=== PATIENT | male | born 1965 | race Caucasian/White ===

== ENCOUNTER 2020-03-11 15:13 | Outpatient (CLI) | payer BC, SELFPAY ==
--- NOTE | ~2020-03-11 | XR_ITS ---
EXAMINATION: XR_CERV2-3V_CR EXAM DATE: 03/11/2020 16:05 INDICATION: Worsening diffuse neck and back pain into scapula, tingling into bilateral upper arms x 3 years. TECHNIQUE: Frontal and lateral projections of the cervical spine. Open-mouth odontoid projection. T here is no prior study for comparison. FINDINGS: There is no evidence of acute cervical fracture. The odontoid process is intact. Pre-dens space is normal. Prevertebral soft tissue is normal. There are no soft tissue abnormalities identi fied. The vertebral bodies are aligned. There is mild disc disease at C6-7. There is mild cervica l facet and uncovertebral joint arthropathy. No evidence of significant neural foraminal stenosis. IMPRESSION: 1. Mild cervical spondylosis. Reviewed, dictated and finalized at location A.
--- NOTE | ~2020-03-11 | XR_ITS ---
EXAMINATION: XR thoracic spine 3V EXAM DATE: 03/11/2020 16:06 INDICATION: worsening diffuse neck and back pain into scapula, tingling into bilateral upper arms x 3 years. TECHNIQUE: Frontal and lateral projections of the thoracic spine. There is no prior study for tobin burks. FINDINGS: There is mild mid and lower thoracic disc disease with small Schmorl's nodes and mild loss of disc heights noted. The vertebral body heights are maintained. The vertebral bodies are aligned i n the AP dimension. Paraspinal soft tissue is unremarkable. There are no bony erosions identified. IMPRESSION: Mild mid and lower thoracic disc disease. Reviewed, dictated and finalized at location A.
--- NOTE | ~2020-03-11 | XR_ITS ---
EXAMINATION: XR chest 2V 03/11/2020 16:04 INDICATION: Worsening back pain PROCEDURE: 2 view chest COMPARISON: 03/14/2018 FINDINGS: The lungs are clear. The lungs are hyperinflated which is consistent with, but not diagnost ic of chronic obstructive pulmonary disease. The cardiomediastinal silhouette is within normal limits . There are no pleural effusions. There is no pneumothorax suspected. IMPRESSION: 1: NO ACUTE CARDIOPULMONARY DISEASE. Reviewed, dictated and finalized at location A.
== END 2020-03-11 15:14 | disposition home or self-care (01) ==
LOC: CHSIMG 15:17
PROVIDERS: PCP Internal Medicine; Visit Provider Internal Medicine
DX: M54.2 Cervicalgia (principal); M54.6 Pain in thoracic spine
CPT/HCPCS: 71046; 72040; 72072

== ENCOUNTER 2020-05-09 14:36 | Outpatient (CLI) | payer BC, SELFPAY ==
--- NOTE | 2020-05-09 14:45 | ECG_ITS ---
Measurements Intervals [place] Rate: 103 P: 76 ND: 170 QRS: 89 QRSD: 90 T: 67 QT: 330 QTc: 433 Interpretive Statements SINUS TACHYCARDIA POSSIBLE RIGHT ATRIAL ENLARGEMENT POSSIBLE LEFT ATRIAL ENLARGEMENT NONSPECIFIC T-WAVE ABNORMALITY- INFERIOR LEADS ABNORMAL ECG Electronically Signed On 05-09-2020 16:09:09 CDT by Gabino Cunningham D.O.
== END 2020-05-09 14:37 | disposition home or self-care (01) ==
LOC: CHSCARD 14:39
PROVIDERS: PCP Internal Medicine; Visit Provider Internal Medicine
DX: I10 Essential (primary) hypertension (principal); Z01.818 Encounter for other preprocedural examination
CPT/HCPCS: 93005

== ENCOUNTER 2020-05-30 19:14 | Inpatient (IN) | payer BC, SELFPAY ==
--- NOTE | ~2020-05-30 | XR_ITS ---
EXAMINATION: XR chest 2V DATE: 06/01/2020 10:51 INDICATION: Acute kidney failure. TECHNIQUE: Frontal and lateral views of the chest were obtained. COMPARISON: Chest 2 views 03/11/2020 FINDINGS: The chest demonstrates clear lungs without pneumonia, pleural effusion, or pneumothorax. Th e heart size is normal. IMPRESSION: 1. No acute cardiopulmonary disease. Reviewed, dictated and finalized at location A.
--- NOTE | 2020-05-30 19:25 | ADMGEN ---
This patient, Khurram Trujillo, was admitted to 2nd Floor Room 226-2. Patient/family oriented to hospital policies and general routines including ID bracelet, bed and alarms, visiting hours, pain management, procedures, bathroom and other care routines, personal items, smoking policy, room service/diet, and visiting hours. Valuables list has been completed. Information on how to activate the Rapid Response Team has been discussed. Patient/Family are encouraged to report perceived risks to care and to ask questions if they do not understand what they are told or what they should do.
[2020-05-30 19:31] VITALS: BP 141/87; PULSE 114; RESP 18; TEMP 36.8; O2SAT 98
[2020-05-30 19:39] VITALS: BMI 22.6
[2020-05-30 20:17] LABS: Glucose Point of Care 230 (65-105)
--- NOTE | 2020-05-30 20:53 | PM.IMHP ---
H&P: HPI History of Present Illness Date/Time: 05/30/20 20:53 Chief complaint: Rehab Narrative: Khurram Trujillo is a 55 year old male with Type 1 DM who was transferred from [facility] rehab. unit for PT, OT and speech therapy. He has a 3 year history of cervical myelopathy involving the C6-C7 disc space. There was marked worsening of his pain and paresthesias approximately 90 days ago. This resulted in pain and numbness in his arms and upper forearm area. His symptoms were relatively controlled with [place] 5/325 - 2 or 3 times daily. On 05/19/2020 he had a anterior cervical diskectomy and fusion at C6-C7. He woke from surgery with right leg weakness and paresthesias, paresthesias in his lower left leg, paresthesias of the trunk, bilateral weakness and paresthesias of the medial hands and 3rd 4th and 5th fingers. On arrival to the rehab unit on May 28 Khurram had a 3 post-void residual test done. He had 500 mL residual with 3rd specimen but was able to void within 40 minutes. He was told this was acceptable and there was no further postvoid studies. Over the past 3 or 4 days Khurram has seen marked improvement. Paresthesias and weakness of the upper extremities have decreased by about 80%, paresthesias in his lower legs have also decreased substantially. He is now able to walk using a walker. The paresthesias in his trunk have resolved by about 80%. After waking up from his surgery with the above deficits Khurram's states he was quite devastated but now is very hopeful. He currently denies anxiety or feeling depressed. Khurram states he does not have a history of hypertension. Documented blood pressure reading from May 27 through May 29 showed systolics in the range of 164-144 with diastolic readings between 88 and 104. Blood pressure this morning 125/7 He has type 1 diabetes which has been treated with NovoLog 70 30 25 in the morning and 20 in the evening. These have resulted in blood sugars in the high 200s in the morning in the low 200s in the afternoon. Chirag ix taking lisinopril for renal preservation. Review of Systems Constitutional: Constitutional: Denies chills, Denies fever(s) and Denies headache(s) Eyes: Eyes: Denies blurry vision Comments: Yearly eye exam. Pt states these remain normal . ENT: Denies vertigo, Denies neck pain and Denies sore throat Cardiovascular: Cardiovascular: Denies chest pain and Denies palpitations Respiratory: Respiratory: Denies cough and Denies dyspnea Gastrointestinal: Gastrointestinal: Reports constipation (constipation episode relieved with stool softener), Denies dyspepsia, Denies diarrhea and Denies nausea Genitourinary: Genitourinary: Denies hematuria and Denies dysuria Musculoskeletal: Musculoskeletal: Reports no additional musculoskeletal complaints Integumentary/Breasts: Skin/Breast: Denies rash and Denies wounds Neurologic: Reports system reviewed and no additional complaints, except as documented Psychiatric: Psychiatric: Reports no additional psychiatric complaints Endocrine: Endocrine: Denies polydipsia Hematologic/Lymphatic: Hematologic/Lymphatic: Denies easy bleeding and Denies easy bruising PMFSH Past Medical History Medical History (Updated 05/30/20 @ 21:30 by Luisito Mart MD) Anxiety Diabetes mellitus type 1 Erectile dysfunction Kidney stones Family History Family History (Updated 05/30/20 @ 21:15 by Luisito Mart MD) Mother Lymphoma Sibling Lymphoma Social History Social History (Updated 05/30/20 @ 21:16 by Luisito Mart MD) Smoking packs per day: 1 Smoking cigarettes per day: 20.0 Years smoked: 34 Smoking pack-years: 34.00 Smoking status: Former smoker Tobacco type: cigarettes Second hand tobacco smoke exposure: Yes Smoking end date: 10/18/19 Alcohol intake: never Substance use: current Substance use type: marijuana Last use: 05/18/20 Living arrangements
[2020-05-31] VITALS: BP 138/84; PULSE 84; RESP 20; TEMP 37; O2SAT 96
--- NOTE | 2020-05-31 00:01 | PC.NURSE ---
Patient stating that he feels like is blood sugar is low. Blood sugar was checked and found to be 49. Patient was given apple juice and a turkey sandwich.
[2020-05-31 01:05] LABS: Glucose Point of Care 49 (65-105)
[2020-05-31 01:05] LABS: Glucose Point of Care 260 (65-105)
[2020-05-31] MEDS: GABAPENTIN 100 MG CAPSULE 200 MG PO ×3 (06:29→17:03)
[2020-05-31 07:36] LABS: Glucose Point of Care 283 (65-105)
[2020-05-31 07:42] VITALS: BP 129/90; PULSE 89; RESP 18; TEMP 36.5; O2SAT 99
[2020-05-31] MEDS: INSULIN HUMAN ISOPHAN/REGULAR 70/30 (*BKC) 100 UNITS/ML 25 UNITS SUB-Q (09:03)
[2020-05-31 09:59] LABS: Hematocrit 36.3 % (40.0-54.0); Hemoglobin 12.5 g/dL (14.0-18.0); Mean Corpuscular HGB Conc 34.4 g/dL (32.0-36.0); Mean Corpuscular Hemoglobin 30.7 pg (27.0-31.0); Mean Corpuscular Volume 89.2 fL (78.0-102.0); Mean Platelet Volume 9.7 fl (8.7-11.0); Platelet Count Result 427 K/mm3 (150-420); Red Blood Count 4.07 M/mm3 (4.70-6.10); Red Cell Distribution Width 11.3 % (11.6-14.4); White Blood Count 8.7 K/mm3 (4.8-10.8)
[2020-05-31 10:12] LABS: Alanine Aminotransferase 39 U/L (16-63); Albumin Level 3.4 g/dL (3.4-5.0); Alkaline Phosphatase 127 U/L (46-116); Anion Gap 6 mmol/L (8-16); Aspartate Amino Transferase 30 U/L (15-37); Bilirubin,Total 0.5 mg/dL (0.00-1.00); Blood Urea Nitrogen 23 mg/dL (7-18); Carbon Dioxide 29 mmol/L (21-32); Chloride 98 mmol/L (98-108); Estimated CRCL calculation 60 ml/min; Estimated Glomerular Filt Rate 58; Osmolality Calculated 298 mOsm/kg (285-295); Potassium 4.7 mmol/L (3.5-5.1); Sodium 133 mmol/L (136-145)
[2020-05-31 10:28] LABS: BNP 9.4 pg/mL (0-100); Glucose 446 mg/dL (70-99)
--- NOTE | 2020-05-31 12:00 | PC.NURSE ---
awake and states had a good nap, alert and oriented and food tray to patient, bedside glucose 259
[2020-05-31 12:08] LABS: Glucose Point of Care 259 (65-105)
--- NOTE | 2020-05-31 12:09 | PM.IMHP ---
H&P: HPI History of Present Illness Date/Time: 05/31/20 12:09 <MARYANNE Zafar - Last Filed: 05/31/20 13:22> Chief complaint: Rehab <MARYANNE Zafar - Last Filed: 05/31/20 13:22> Narrative: Khurram Trujillo is a 55 year old male that was admitted to our swing bed rehab program status post ACDF of C6-7 on 05/19/2020 secondary to cervical myopathy. patient has a past medical history of diabetes, hypertension, hypercholesterolemia, anxiety, kidney stones, TBI, CVA, history migraines, history of nephrolithiasis and appendectomy Patient admitted in swing bed for rehabilitation due to decreased balance decreased mobility in severe limited function endurant and/or mobility. <MARYANNE Zafar - Last Filed: 05/31/20 13:22> Review of Systems Review of Systems: All systems reviewed & are unremarkable except as noted in HPI and below ( h&P10 system review) <MARYANNE Zafar - Last Filed: 05/31/20 13:22> [facility] Past Medical History Medical History: Medical History (Updated 05/31/20 @ 13:22 by MARYANNE Zafar) Anxiety Diabetes mellitus type 1 Erectile dysfunction Kidney stones <MARYANNE Zafar - Last Filed: 05/31/20 13:22> Family History Family History: Family History (Updated 05/30/20 @ 21:15 by Luisito Mart MD) Mother Lymphoma Sibling Lymphoma <MARYANNE Zafar - Last Filed: 05/31/20 13:22> Social History Social History: Social History (Updated 05/30/20 @ 21:16 by Luisito Mart MD) Smoking packs per day: 1 Smoking cigarettes per day: 20.0 Years smoked: 34 Smoking pack-years: 34.00 Smoking status: Former smoker Tobacco type: cigarettes Second hand tobacco smoke exposure: Yes Smoking end date: 10/18/19 Alcohol intake: never Substance use: current Substance use type: marijuana Last use: 05/18/20 Living arrangements: alone Occupation/Education: occupation Additional occupation/education comments: 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 Gender identity (if verbalized by the patient): Male Spiritual care concerns: No <MARYANNE Zafar - Last Filed: 05/31/20 13:22> Meds Home Medications and Allergies Home medications: Home Medications Medication Instructions Recorded Confirmed Type acetaminophen 650 mg PO Q4H PRN 05/30/20 05/30/20 History gabapentin 200 mg PO TID 05/30/20 05/30/20 History hydrocodone-acetaminophen 1 tablet PO Q6H PRN 05/30/20 05/30/20 History insulin aspart U-100 [Novolog 20 unit SUBCUT QACDINNER 05/30/20 05/30/20 History U-100 Insulin aspart] insulin aspart U-100 [Novolog 25 unit SUBCUT QACBREAK 05/30/20 05/30/20 History U-100 Insulin aspart] lisinopril 10 mg PO HS 05/30/20 05/30/20 History polyethylene glycol 3350 17 g PO DAILY PRN 05/30/20 05/30/20 History sennosides-docusate sodium 1 tab-cap PO DAILY 05/30/20 05/30/20 History <MARYANNE Zafar - Last Filed: 05/31/20 13:22> Allergies/Adverse reactions: Allergies Allergy/AdvReac Type Severity Reaction Status Date / Time No Known Allergies Allergy Verified 05/31/20 01:59 <MARYANNE Zafar - Last Filed: 05/31/20 13:22> Vital Signs Vital Signs - 24 hr 05/30/20 19:31 05/31/20 00:00 05/31/20 07:42 Temperature 98.3 F 98.6 F 97.7 F Pulse Rate 114 H 84 89 Respiratory Rate 18 20 18 Blood Pressure 141/87 H 138/84 129/90 Pulse Oximetry 98 96 99 <MARYANNE Zafar - Last Filed: 05/31/20 13:22> Exam Narrative: Exam Narrative: General: A well-developed, well-nourished male sitting up in bed no acute distress. HEENT: Normocephalic, atraumatic. PERRL, EOMI. Sclerae anicteric. Oral mucosa moist. Oropharynx clear. Neck: Supple. Respiratory: Lungs are clear to auscultation bilaterally. Cardiovascular: Regular rate and rhythm with S1-S2. Gastrointestinal: Abdomen is soft, nontender, and nondistended wi
[2020-05-31 13:30] LABS: Hemoglobin A1C 8.7 % (<5.7)
[2020-05-31 15:40] VITALS: BP 115/88; PULSE 90; RESP 18; TEMP 36.7; O2SAT 95
[2020-05-31 16:50] LABS: Glucose Point of Care 244 (65-105)
[2020-05-31] MEDS: DOCUSATE SODIUM 100 MG CAPSULE PO (17:02)
[2020-05-31] MEDS: INSULIN HUMAN ISOPHAN/REGULAR 70/30 (*BKC) 100 UNITS/ML 20 UNITS SUB-Q (17:07)
--- NOTE | 2020-05-31 18:09 | PC.NURSE ---
Soft c collar on and ambulatory with SBA and use of walker to bathroom to shower
--- NOTE | 2020-05-31 18:38 | PC.NURSE ---
Tolerated shower with soft c collar well, denies increase in pain at this time, ambulatory with SBA and use of walker back to room and able to dress self, call light in reach of patient
--- NOTE | 2020-05-31 19:25 | PC.NURSE ---
pt up to chair, sba with walker, tolerated well, given exercise bands per request to perform exercises he was given per PT
--- NOTE | 2020-05-31 21:00 | PC.NURSE ---
pt blood sugar tested and was 52, pt given juice and fruit cup
[2020-05-31] MEDS: SENNOSIDES 8.6 MG TABLET PO (21:06)
[2020-05-31] MEDS: lisinopriL 10 MG TABLET PO (21:06)
[2020-05-31 21:31] LABS: Glucose Point of Care 52 (65-105)
[2020-05-31 21:43] LABS: Glucose Point of Care 101 (65-105)
[2020-05-31 23:30] VITALS: BP 135/72; PULSE 98; RESP 18; TEMP 36.1; O2SAT 99
--- NOTE | 2020-06-01 01:09 | PC.NURSE ---
pt sleeping, respirations even and regular, no evidence of distress noted at this time.
[2020-06-01] MEDS: ACETAMINOPHEN 500 MG TABLET 1000 MG PO (02:56)
[2020-06-01 03:04] LABS: Glucose Point of Care 63 (65-105)
--- NOTE | 2020-06-01 03:06 | PC.NURSE ---
pt called out with a headache and requested tylenol, blood glucose obtained and was 63, pt given juice, milk and bob crackers
[2020-06-01 03:27] LABS: Glucose Point of Care 84 (65-105)
[2020-06-01 04:42] LABS: Glucose Point of Care 271 (65-105)
[2020-06-01 07:50] VITALS: BP 138/79; PULSE 87; RESP 18; TEMP 36.9; O2SAT 95
[2020-06-01 07:54] LABS: Glucose Point of Care 319 (65-105)
[2020-06-01] MEDS: INSULIN HUMAN ISOPHAN/REGULAR 70/30 (*BKC) 100 UNITS/ML 25 UNITS SUB-Q (08:18)
--- NOTE | 2020-06-01 09:00 | ECG_ITS ---
Measurements Intervals [place] Rate: 88 P: 77 NM: 164 QRS: 89 QRSD: 84 T: 88 QT: 384 QTc: 467 Interpretive Statements SINUS RHYTHM POSSIBLE LEFT ATRIAL ENLARGEMENT BORDERLINE ECG Electronically Signed On 06-02-2020 7:14:16 CDT by Gabino Cunningham D.O.
[2020-06-01] MEDS: GABAPENTIN 100 MG CAPSULE 200 MG PO ×3 (09:03→17:05)
[2020-06-01] MEDS: DOCUSATE SODIUM 100 MG CAPSULE PO ×2 (09:03→17:03)
[2020-06-01 11:35] LABS: Glucose Point of Care 316 (65-105)
--- NOTE | 2020-06-01 14:00 | PC.NURSE ---
In chair, no distresss, c collar in place
[2020-06-01 15:36] VITALS: BP 135/80; PULSE 94; RESP 18; TEMP 36.9; O2SAT 95
[2020-06-01 16:49] LABS: Glucose Point of Care 191 (65-105)
[2020-06-01] MEDS: INSULIN HUMAN ISOPHAN/REGULAR 70/30 (*BKC) 100 UNITS/ML 20 UNITS SUB-Q (17:05)
--- NOTE | 2020-06-01 18:24 | PC.NURSE ---
Sitting in chair working on computer, denies needs,c collar on
[2020-06-01] MEDS: lisinopriL 10 MG TABLET PO (20:08)
[2020-06-01] MEDS: SENNOSIDES 8.6 MG TABLET PO (20:08)
[2020-06-01 21:50] LABS: Glucose Point of Care 109 (65-105)
--- NOTE | 2020-06-01 21:59 | PC.NURSE ---
pt given snack per request to help prevent blood glucose from dropping too much, blood glucose obtained and within normal limits
[2020-06-02] VITALS: BP 113/70; PULSE 86; RESP 18; TEMP 36.8; O2SAT 98
--- NOTE | 2020-06-02 02:34 | PC.NURSE ---
pt sleeping, respirations even and regular, no evidence of distress noted at this time.
[2020-06-02 07:40] VITALS: BP 153/92; PULSE 104; RESP 18; TEMP 36.9; O2SAT 98
[2020-06-02 08:02] LABS: Glucose Point of Care 204 (65-105)
[2020-06-02] MEDS: DOCUSATE SODIUM 100 MG CAPSULE PO ×2 (10:04→17:42)
[2020-06-02] MEDS: INSULIN HUMAN ISOPHAN/REGULAR 70/30 (*BKC) 100 UNITS/ML 25 UNITS SUB-Q (10:06)
[2020-06-02] MEDS: GABAPENTIN 100 MG CAPSULE 200 MG PO ×3 (10:07→17:42)
--- NOTE | 2020-06-02 11:45 | PM.EVENT ---
Event Note Event Note Event Note: patient's blood sugars in the 400s today. Spoke with patient concerning his hyperglycemia and how he treats himself at home. we agreed that we would give him 6 units a fast acting insulin for now
[2020-06-02 13:15] LABS: Glucose Point of Care 415 (65-105)
[2020-06-02 16:00] VITALS: BP 129/81; PULSE 101; RESP 18; TEMP 37.3; O2SAT 99
[2020-06-02 17:07] LABS: Glucose Point of Care 96 (65-105)
[2020-06-02] MEDS: INSULIN HUMAN ISOPHAN/REGULAR 70/30 (*BKC) 100 UNITS/ML 20 UNITS SUB-Q (17:42)
[2020-06-02] MEDS: SENNOSIDES 8.6 MG TABLET PO (21:06)
[2020-06-02] MEDS: lisinopriL 10 MG TABLET PO (21:06)
[2020-06-02 21:18] LABS: Glucose Point of Care 126 (65-105)
--- NOTE | 2020-06-02 22:24 | PC.NURSE ---
glucose 96 bob crackers and milk provided per patient's request
[2020-06-03] VITALS: BP 113/76; PULSE 92; RESP 14; TEMP 36.7; O2SAT 100
[2020-06-03 00:02] LABS: Glucose Point of Care 61 (65-105)
--- NOTE | 2020-06-03 00:08 | PC.NURSE ---
Patient blood sugar 61. Patient requested milk, juice and bob crackers. Will recheck in 1 hour
[2020-06-03 00:58] LABS: Glucose Point of Care 135 (65-105)
[2020-06-03 07:29] LABS: Glucose Point of Care 267 (65-105)
[2020-06-03 08:00] VITALS: BP 131/81; PULSE 83; RESP 16; TEMP 36.4; O2SAT 96
[2020-06-03] MEDS: INSULIN HUMAN ISOPHAN/REGULAR 70/30 (*BKC) 100 UNITS/ML 25 UNITS SUB-Q (08:04)
[2020-06-03] MEDS: DOCUSATE SODIUM 100 MG CAPSULE PO ×2 (09:00→17:11)
[2020-06-03] MEDS: GABAPENTIN 100 MG CAPSULE 200 MG PO ×3 (09:01→17:11)
[2020-06-03 12:01] LABS: Glucose Point of Care 169 (65-105)
[2020-06-03] MEDS: ACETAMINOPHEN 500 MG TABLET 1000 MG PO (15:10)
[2020-06-03 15:24] LABS: Glucose Point of Care 134 (65-105)
[2020-06-03 15:46] VITALS: BP 142/110; PULSE 109; RESP 18; TEMP 36.4; O2SAT 99
[2020-06-03] MEDS: INSULIN HUMAN ISOPHAN/REGULAR 70/30 (*BKC) 100 UNITS/ML 20 UNITS SUB-Q (17:13)
[2020-06-03 17:21] LABS: Glucose Point of Care 139 (65-105)
--- NOTE | 2020-06-03 18:52 | PC.NURSE ---
pt requests to shower, set up in bathroom, will turn on light when finished
[2020-06-03] MEDS: SENNOSIDES 8.6 MG TABLET PO (21:24)
[2020-06-03] MEDS: lisinopriL 10 MG TABLET PO (21:25)
[2020-06-03 21:36] LABS: Glucose Point of Care 71 (65-105)
--- NOTE | 2020-06-03 21:38 | PC.NURSE ---
pt resting in bed, given jello, cottage cheese and apple juice for sugar of 71, no other complaints at this time
[2020-06-04] VITALS: BP 115/71; PULSE 86; RESP 20; TEMP 36.8; O2SAT 97
--- NOTE | 2020-06-04 00:30 | PC.NURSE ---
Pt request Blood sugar check. accucheck 76. Milk, apple juice bob crackers given per request.
[2020-06-04 01:02] LABS: Glucose Point of Care 76 (65-105)
[2020-06-04 07:30] LABS: Glucose Point of Care 50 (65-105)
[2020-06-04 08:00] VITALS: BP 139/72; PULSE 90; RESP 18; TEMP 36.6; O2SAT 98
--- NOTE | 2020-06-04 08:58 | PC.NURSE ---
Claribel VALENTINE notified of patient BS this morning and interventions already taken.
[2020-06-04] MEDS: INSULIN HUMAN ISOPHAN/REGULAR 70/30 (*BKC) 100 UNITS/ML 25 UNITS SUB-Q (09:15)
[2020-06-04] MEDS: GABAPENTIN 100 MG CAPSULE 200 MG PO ×3 (09:20→17:12)
[2020-06-04] MEDS: DOCUSATE SODIUM 100 MG CAPSULE PO ×2 (09:20→17:13)
[2020-06-04 09:24] LABS: Glucose Point of Care 359 (65-105)
[2020-06-04 12:03] LABS: Glucose Point of Care 341 (65-105)
[2020-06-04 16:00] VITALS: BP 122/82; PULSE 98; RESP 18; TEMP 37.4; O2SAT 98
[2020-06-04] MEDS: INSULIN HUMAN ISOPHAN/REGULAR 70/30 (*BKC) 100 UNITS/ML 20 UNITS SUB-Q (18:35)
[2020-06-04] MEDS: SENNOSIDES 8.6 MG TABLET PO (20:09)
[2020-06-04] MEDS: lisinopriL 10 MG TABLET PO (20:09)
[2020-06-04 20:19] LABS: Glucose Point of Care 423 (65-105)
[2020-06-04 22:09] LABS: Glucose Point of Care 350 (65-105)
[2020-06-05] VITALS: BP 122/79; PULSE 82; RESP 20; TEMP 36.6; O2SAT 99
--- NOTE | 2020-06-05 02:40 | PC.NURSE ---
pt sleeping, respirations even and regular, no evidence of distress noted at this time
[2020-06-05 02:49] LABS: Glucose Point of Care 213 (65-105)
[2020-06-05 02:49] LABS: Glucose Point of Care 202 (65-105)
[2020-06-05 07:29] LABS: Glucose Point of Care 178 (65-105)
[2020-06-05 07:58] VITALS: BP 134/80; PULSE 82; RESP 18; TEMP 36.4; O2SAT 95
[2020-06-05 08:05] LABS: Glucose Point of Care 253 (65-105)
[2020-06-05] MEDS: DOCUSATE SODIUM 100 MG CAPSULE PO (08:42)
[2020-06-05] MEDS: GABAPENTIN 100 MG CAPSULE 200 MG PO ×2 (08:42→12:02)
[2020-06-05] MEDS: INSULIN HUMAN ISOPHAN/REGULAR 70/30 (*BKC) 100 UNITS/ML 25 UNITS SUB-Q (08:45)
[2020-06-05 10:26] LABS: Hemoglobin 12.3 g/dL (14.0-18.0); Mean Corpuscular HGB Conc 33.2 g/dL (32.0-36.0); Mean Corpuscular Hemoglobin 30.3 pg (27.0-31.0); Mean Corpuscular Volume 91.1 fL (78.0-102.0); Mean Platelet Volume 9.9 fl (8.7-11.0); Platelet Count Result 437 K/mm3 (150-420); Red Blood Count 4.06 M/mm3 (4.70-6.10); Red Cell Distribution Width 11.4 % (11.6-14.4)
[2020-06-05 10:41] LABS: Alanine Aminotransferase 40 U/L (16-63); Albumin Level 3.5 g/dL (3.4-5.0); Alkaline Phosphatase 110 U/L (46-116); Anion Gap 4 mmol/L (8-16); Aspartate Amino Transferase 24 U/L (15-37); Bilirubin,Total 0.4 mg/dL (0.00-1.00); Blood Urea Nitrogen 17 mg/dL (7-18); Carbon Dioxide 31 mmol/L (21-32); Chloride 98 mmol/L (98-108); Estimated CRCL calculation 69 ml/min; Estimated Glomerular Filt Rate > 60; Glucose 392 mg/dL (70-99); Osmolality Calculated 293 mOsm/kg (285-295); Potassium 4.7 mmol/L (3.5-5.1); Sodium 133 mmol/L (136-145); Total Protein 6.9 g/dL (6.4-8.2)
--- NOTE | 2020-06-05 11:24 | P.DS_ITS ---
DS: Admitting Diagnosis Admitting Diagnosis Admitting Diagnosis: Rehab DS: Discharge Diagnosis Discharge Diagnosis (1) Urinary retention: Code(s): R33.9 - Retention of urine, unspecified Status: Acute Assessment and Plan: * resolved * possibly secondary to neurogenic bowel and bladder (2) Hypertension: Code(s): I10 - Essential (primary) hypertension Status: Acute Assessment and Plan: * blood pressure stable * continue lisinopril (3) Cervical myelopathy: Code(s): G95.9 - Disease of spinal cord, unspecified Status: Acute Assessment and Plan: * status post c6-[address] House on 06/15/2020 * continue to wear cervical collar * continue pain medication * follow-up with Dr. Bingham July 10 2020 and [facility] (4) Anxiety: Code(s): F41.9 - Anxiety disorder, unspecified Status: Acute Assessment and Plan: * Stable (5) Diabetes mellitus type 1: Code(s): E10.9 - Type 1 diabetes mellitus without complications Status: Acute Assessment and Plan: * stable * continue NovoLog mix 70 /30 20 units subcu p.m. and 25 units subcu daily (6) Weakness: Code(s): R53.1 - Weakness Status: Acute Assessment and Plan: * resolved * patient completed a few days of rehab in previous hospital- patient able to ambulate approximately 350 ft with 2 wheeled walker * Exhibit tolerance during physical activity as evidenced by a normal fluctuation of vital signs during physical activity. * Patient will be ability to perform required activities of daily living. * Provide appropriate nutrition for healing and strength. * Use appropriate to prevent falls. * Continue physical therapy/occupational therapy. (7) Acute renal failure: Code(s): N17.9 - Acute kidney failure, unspecified Status: Acute Assessment and Plan: * resolved * possibly secondary to surgical procedure * will periodically monitor (8) DVT prophylaxis: Code(s): Z29.9 - Encounter for prophylactic measures, unspecified Status: Acute Assessment and Plan: * continue Lovenox DS: Summary Time Spent with Patient Time attestation: Total time spent providing and/or coordinating discharge services:60 Exam Narrative: Exam Narrative: General: A well-developed, well-nourished male sitting up in bed no acute distress. HEENT: Normocephalic, atraumatic. PERRL, EOMI. Sclerae anicteric. Oral mucosa moist. Oropharynx clear. Neck: Supple. Respiratory: Lungs are clear to auscultation bilaterally. Cardiovascular: Regular rate and rhythm with S1-S2. Gastrointestinal: Abdomen is soft, nontender, and nondistended with positive bowel sounds. No organomegaly. Skin: healing anterior neck incision Extremities: No cyanosis, clubbing, or edema. Radial and pedal pulses intact. Neurological: Alert. Cranial nerves 2-12 are grossly intact. decreased sensation to touch to bilateral lower extremities Psychiatric: Pleasant and cooperative with normal mood and affect. Judgment and insight intact. CONSTITUTIONAL :No weight loss, fever, chills, weakness or fatigue.: HEENT: Eyes: No diplopia or blurred vision. ENT: No earache, sore throat or runny nose. CARDIOVASCULAR: No pressure, squeezing, strangling, tightness, heaviness or aching about the chest, neck, axilla or epigastrium. RESPIRATORY: No cough, shortness of breath, PND or orthopnea. GASTROINTEST
--- NOTE | 2020-06-05 11:24 | PM.DS ---
DS: Admitting Diagnosis Admitting Diagnosis Admitting Diagnosis: Rehab DS: Discharge Diagnosis Discharge Diagnosis (1) Urinary retention: Code(s): R33.9 - Retention of urine, unspecified Status: Acute Assessment and Plan: resolved possibly secondary to neurogenic bowel and bladder (2) Hypertension: Code(s): I10 - Essential (primary) hypertension Status: Acute Assessment and Plan: blood pressure stable continue lisinopril (3) Cervical myelopathy: Code(s): G95.9 - Disease of spinal cord, unspecified Status: Acute Assessment and Plan: status post c6-[address] House on 06/15/2020 continue to wear cervical collar continue pain medication follow-up with Dr. Bingham July 10 2020 and 945 [facility] (4) Anxiety: Code(s): F41.9 - Anxiety disorder, unspecified Status: Acute Assessment and Plan: Stable (5) Diabetes mellitus type 1: Code(s): E10.9 - Type 1 diabetes mellitus without complications Status: Acute Assessment and Plan: stable continue NovoLog mix 70 /30 20 units subcu p.m. and 25 units subcu daily (6) Weakness: Code(s): R53.1 - Weakness Status: Acute Assessment and Plan: resolved patient completed a few days of rehab in previous hospital- patient able to ambulate approximately 350 ft with 2 wheeled walker Exhibit tolerance during physical activity as evidenced by a normal fluctuation of vital signs during physical activity. Patient will be ability to perform required activities of daily living. Provide appropriate nutrition for healing and strength. Use appropriate to prevent falls. Continue physical therapy/occupational therapy. (7) Acute renal failure: Code(s): N17.9 - Acute kidney failure, unspecified Status: Acute Assessment and Plan: resolved possibly secondary to surgical procedure will periodically monitor (8) DVT prophylaxis: Code(s): Z29.9 - Encounter for prophylactic measures, unspecified Status: Acute Assessment and Plan: continue Lovenox DS: Summary Time Spent with Patient Time attestation: Total time spent providing and/or coordinating discharge services:60 Exam Narrative: Exam Narrative: General: A well-developed, well-nourished male sitting up in bed no acute distress. HEENT: Normocephalic, atraumatic. PERRL, EOMI. Sclerae anicteric. Oral mucosa moist. Oropharynx clear. Neck: Supple. Respiratory: Lungs are clear to auscultation bilaterally. Cardiovascular: Regular rate and rhythm with S1-S2. Gastrointestinal: Abdomen is soft, nontender, and nondistended with positive bowel sounds. No organomegaly. Skin: healing anterior neck incision Extremities: No cyanosis, clubbing, or edema. Radial and pedal pulses intact. Neurological: Alert. Cranial nerves 2-12 are grossly intact. decreased sensation to touch to bilateral lower extremities Psychiatric: Pleasant and cooperative with normal mood and affect. Judgment and insight intact. CONSTITUTIONAL :No weight loss, fever, chills, weakness or fatigue.: HEENT: Eyes: No diplopia or blurred vision. ENT: No earache, sore throat or runny nose. CARDIOVASCULAR: No pressure, squeezing, strangling, tightness, heaviness or aching about the chest, neck, axilla or epigastrium. RESPIRATORY: No cough, shortness of breath, PND or orthopnea. GASTROINTESTINAL: No nausea, vomiting or diarrhea. GENITOURINARY: No dysuria, frequency or urgency. MUSCULOSKELETAL: No muscle, back pain, joint pain or stiffness. SKIN: No change in skin, hair or nails. NEUROLOGIC: No paresthesias, fasciculations, seizures or weakness. slight tingling of the extremities PSYCHIATRIC: No disorder of thought or mood. ENDOCRINE: No heat or cold intolerance, polyuria or polydipsia. HEMATOLOGICAL: No easy bruising or bleeding. DS: Data
[2020-06-05 12:05] LABS: Glucose Point of Care 342 (65-105)
--- NOTE | 2020-06-05 12:25 | PC.NURSE ---
Discharge with personal items and home medication to home via wheel chair, no questions upon discharge
== END 2020-06-05 12:25 | disposition home or self-care (01) | DRG 561 ==
PROVIDERS: Nurse Practitioner; Admitting Provider Family Medicine; PCP Internal Medicine; Visit Provider Family Medicine
DX: Z47.89 Encounter for other orthopedic aftercare (principal); Z98.1 Arthrodesis status; R20.2 Paresthesia of skin; R33.9 Retention of urine, unspecified; E10.9 Type 1 diabetes mellitus without complications; I10 Essential (primary) hypertension; F41.9 Anxiety disorder, unspecified; Z87.442 Personal history of urinary calculi; Z87.891 Personal history of nicotine dependence
CPT/HCPCS: 36415; 71046; 80053; 83036; 83880; 85027; 92610; 93005; 97110; 97161; 97165; 97530; 97535; A9270; J1650; J1815

== ENCOUNTER 2020-06-09 12:50 | Outpatient (RCR) | payer BC, SELFPAY ==
--- NOTE | 2020-06-09 14:06 | PTOPEVAL ---
Thank you for referring Khurram Trujillo to [facility].? The patient is scheduled to be seen for therapy? ____x/week for ___ weeks. Please review, sign, date and return this plan of care JILLIAN. I agree with and certify that the following plan of care is medically necessary. Referring Physician Date Admitting Provider: Attending Provider: MARYANNE Zafar Referring Provider: *PT Outpatient Evaluation Start: 06/09/20 13:05 Freq: Status: Active Protocol: Document 06/09/20 13:05 JOAO (Rec: 06/09/20 14:05 JOAO [id number]) Therapy Assessment Status Assessment Status Assessment Status Evaluation Outpatient Past Medical History Neurological History Hx Neurologic Surgery Yes: spinal cord surgery 2019 Hx Other Neurological Disorders Yes: paralysis post spinal cord surgery on 05/19/2020 Cardiovascular History Hx Hypercholesterolemia Yes Respiratory History Hx Respiratory Disorders No Significant History Gastrointestinal History Hx Appendectomy Yes Genitourinary History Hx Genitourinary Disorders No Significant History Musculoskeletal History Hx Spinal Surgery Yes Hematological History Hx Hematological Disorders No Significant History Endocrine History Hx Diabetes Yes: type 1 HEENT History Hx Tonsillectomy Yes Integumentary History Hx Skin Disorders No Significant History Reproductive History Hx Reproductive Disorders No Significant History Psychosocial History Hx Psychiatric Disorders No Significant History Pain History History of Any Previous or Ongoing No Significant History Instance of Pain Anesthesia History Hx Anesthesia Reactions No Significant History Other History Hx MRSA Yes: about 15 years ago Evaluation Information Problem Diagnosis spinal cord injury Onset 05/19/20 Additional Evaluation Detail Oswestry= 50% Subjective Information Pt. reports that he underwent Query Text:As Reported By Patient/ neck surgery on 05/19/20. He Family states that folllowing surgery he suffered some paralysis. He was in rehab for about 1 1/ 2 weeks after surgery. He states that his biggest concern is a lack of ability to feel. He states that he has numbness on both sides of the arm. He reports that he has returned home and states that he has been doing his own
--- NOTE | 2020-06-27 11:13 | PCPTNOTE ---
06/27/20-pt cancelled apt yesterday, stating he went to the [facility] on Tuesday for issues with constipation, and the issue seems to be resolved today .
--- NOTE | 2020-07-23 12:37 | PCPTNOTE ---
I contacted Mr. Trujillo on this date via telephone. He states that he is having some concerning issues that his doctor his currently handling. He states that he will have to hold on PT until he follows up with his specialist. He attended a total of 4 treatment sessions from 06/09/20 to 06/24/20. He will be discharged from our care at this time. Refer to the last daily note for discharge status. Thank you for the referral of this pt. Wyatt Larson, MPT
== END 2020-09-07 23:59 | disposition home or self-care (01) ==
LOC: CHSPT 12:50
PROVIDERS: Visit Provider Nurse Practitioner
DX: R53.1 Weakness (principal); G95.9 Disease of spinal cord, unspecified
CPT/HCPCS: 97110; 97161

== ENCOUNTER 2020-07-23 10:15 | Outpatient (CLI) | payer BC, SELFPAY ==
--- NOTE | ~2020-07-23 | XR_ITS ---
XR chest 2V DATE: 07/23/2020 10:46 INDICATION: Chest pressure TECHNIQUE: PA and lateral views COMPARISON: 06/01/2020 AP and lateral chest FINDINGS: Status post anterior and interbody lower cervical spine surgical fusion at C6-7. Normal heart size. No hilar or mediastinal enlargement. No pulmonary infiltrate or consolidation, pleural effusion or pulmonary vascular congestion or pneumo thorax is detected. Mild thoracic dextroscoliosis. Minimal degenerative spurring of the thoracic spine. IMPRESSION: No active cardiopulmonary disease Reviewed, dictated and finalized at location A.
--- NOTE | 2020-07-23 10:19 | ECG_ITS ---
Measurements Intervals [place] Rate: 84 P: 75 [place]: 140 QRS: 88 QRSD: 88 T: 60 QT: 371 QTc: 439 Interpretive Statements SINUS RHYTHM POSSIBLE RIGHT ATRIAL ENLARGEMENT BASELINE ARTIFACT- I, II, AVR BORDERLINE ECG Electronically Signed On 07-23-2020 10:54:23 CDT by Gabino Cunningham D.O.
[2020-07-23 10:28] LABS: Hematocrit 41.7 % (40.0-54.0); Mean Corpuscular HGB Conc 33.6 g/dL (32.0-36.0); Mean Corpuscular Hemoglobin 30.5 pg (27.0-31.0); Mean Corpuscular Volume 90.8 fL (78.0-102.0); Mean Platelet Volume 9.8 fl (8.7-11.0); Platelet Count Result 259 K/mm3 (150-420); Red Blood Count 4.59 M/mm3 (4.70-6.10); Red Cell Distribution Width 11.5 % (11.6-14.4); White Blood Count 9.1 K/mm3 (4.8-10.8)
[2020-07-23 10:53] LABS: Alanine Aminotransferase 55 U/L (16-63); Albumin Level 4.3 g/dL (3.4-5.0); Alkaline Phosphatase 132 U/L (46-116); Anion Gap 10 mmol/L (8-16); Aspartate Amino Transferase 40 U/L (15-37); Bilirubin,Total 0.7 mg/dL (0.00-1.00); Blood Urea Nitrogen 20 mg/dL (7-18); Calcium 9.5 mg/dL (8.5-10.1); Carbon Dioxide 28 mmol/L (21-32); Chloride 98 mmol/L (98-108); Estimated Glomerular Filt Rate > 60; Lipase 47 U/L (73-393); Osmolality Calculated 303 mOsm/kg (285-295); Potassium 4.9 mmol/L (3.5-5.1); Sodium 136 mmol/L (136-145); Total Protein 7.6 g/dL (6.4-8.2)
[2020-07-23 10:55] LABS: Troponin I < 0.02 ng/mL (0.00-0.056)
[2020-07-23 10:56] LABS: Glucose 436 mg/dL (70-99)
== END 2020-07-23 10:16 | disposition home or self-care (01) ==
PROVIDERS: PCP Family Medicine; Visit Provider Family Medicine
DX: R10.9 Unspecified abdominal pain (principal)
CPT/HCPCS: 36415; 71046; 80053; 83690; 84484; 85027; 93005

== ENCOUNTER 2020-09-08 08:25 | Outpatient (CLI) | payer BC, SELFPAY ==
--- NOTE | ~2020-09-08 | CT_ITS ---
EXAMINATION: CT chest abdomen w con EXAM DATE: 09/08/2020 09:32 INDICATION: Weight Loss wt loss, constant contraction of abd muscles x3mo. TECHNIQUE: Spiral CT of the chest and abdomen was performed following intravenous injection of 100 mL Omnipaque 350. Axial, coronal and sagittal images were reviewed. Coronal maximum intensity pixel i mages of chest reviewed. The dose-length product (DLP) for this examination was 379.78 mGy-cm. The exposure was tailored according to patient size (auto mA exposure control), and iterative reconstruct ion (ASIR) was used as additional dose reduction technique. Comparison is made to prior examination f rom 11/19/2015. FINDINGS: CHEST: The lungs are clear. There are no pleural or pericardial effusions. Tracheobronchial tree is patent. There is no mediastinal, hilar or axillary lymphadenopathy. There is no pneumothorax. Heart normal in size. There is mild coronary arterial calcification, arterial sclerosis. ABDOMEN: The liver, spleen, adrenal glands and pancreas are unremarkable. Gallbladder is unremarkabl e. No biliary obstruction. Portal and splenic veins are patent. Kidneys enhance symmetrically. Th ere is no hydronephrosis. Probable punctate bilateral nephrolithiasis. There is no retroperitoneal lymphadenopathy. The appendix is not positively visualized. There is no pericecal inflammatory change to suggest appe ndicitis. The stomach and small bowel are unremarkable. There is expected amount of colonic stool. No free intraperitoneal gas. There are no osteoblastic or osteolytic lesions identified. IMPRESSION: 1. Punctate bilateral nephrolithiasis. 2. Unremarkable chest. Reviewed, dictated and finalized at location B. F [employer]ICER
== END 2020-09-08 08:26 | disposition home or self-care (01) ==
LOC: CHSIMG 08:28
PROVIDERS: PCP Family Medicine
DX: R63.4 Abnormal weight loss (principal)
CPT/HCPCS: 71260; 74160; Q9965

== ENCOUNTER 2021-03-16 00:12 | Inpatient (IN) | payer BC, SELFPAY ==
[2021-03-16] VITALS (10 sets, daily range): BP systolic 116–180; BP diastolic 63–90; PULSE 74–107; RESP 18–20; TEMP 36.4–37.7; O2SAT 96–100; BMI 19.0
--- NOTE | ~2021-03-16 | CT_ITS ---
EXAMINATION: CT abdomen pelvis w con DATE: 03/16/2021 01:54 INDICATION: Abdominal pain. TECHNIQUE: Computed tomography (CT) of the abdomen and pelvis was performed with 100 mL Omnipaque 350 intravenous contrast. Automated exposure control and iterative reconstruction technique were employe d. The dose-length product was 196.20 mGy-cm. COMPARISON: CT abdomen and pelvis 09/08/2020 FINDINGS: The visualized portions of the lung bases are clear without pneumonia or pleural effusion. The heart size is normal. No pericardial effusion. The liver, gallbladder, spleen, pancreas, and adre nal glands are normal. There are 3 mm and 4 mm stones in right kidney. There are 3 stones in left kid kamini measuring up to 3 mm. The bladder is distended. There are no dilated loops of bowel. The appendix is not visualized. There are no pathologically enlarged lymph nodes. There is no free intraperitonea l fluid. There is mild thoracolumbar spondylosis. IMPRESSION: 1. Bilateral nonobstructing kidney stones. Reviewed, dictated and finalized at location A.
--- NOTE | ~2021-03-16 | XR_ITS ---
EXAMINATION: XR chest 2V DATE: 03/16/2021 09:22 INDICATION: Leukocytosis. TECHNIQUE: Frontal and lateral views of the chest were obtained. COMPARISON: Chest 2 views 07/23/2020, CT abdomen and pelvis 03/16/2021 FINDINGS: The chest demonstrates clear lungs without pneumonia, pleural effusion, or pneumothorax. Th e heart size is normal. There are changes of anterior fusion procedure in cervical spine. IMPRESSION: 1. No acute cardiopulmonary disease. Reviewed, dictated and finalized at location A.
--- NOTE | 2021-03-16 00:31 | ECG_ITS ---
Measurements Intervals [place] Rate: 108 P: 80 [place]: 157 QRS: 94 QRSD: 84 T: 72 QT: 320 QTc: 431 Interpretive Statements SINUS TACHYCARDIA RIGHT AXIS DEVIATION RIGHT ATRIAL ENLARGEMENT NONSPECIFIC ST & T-WAVE ABNORMALITY- INFERIOR LEADS ABNORMAL ECG Electronically Signed On 03-16-2021 6:53:22 CDT by Gabino Cunningham D.O.
[2021-03-16 00:51] LABS: Basophils Absolute Auto 0.04 K/mm3 (0.00-0.10); Basophils Percent Auto 0.3 % (0.0-1.0); Hemoglobin 14.1 g/dL (14.0-18.0); Immature Granulocyte Absolute 0.09 K/mm3 (0.00-0.00); Immature Granulocyte Percent A 0.6 % (0.0-0.0); Lymphocytes Absolute Auto 2.01 K/mm3 (1.10-4.50); Lymphocytes Percent Auto 14.3 % (18.0-42.0); Mean Corpuscular HGB Conc 35.3 g/dL (32.0-36.0); Mean Corpuscular Hemoglobin 30.5 pg (27.0-31.0); Mean Corpuscular Volume 86.4 fL (78.0-102.0); Mean Platelet Volume 10.3 fl (8.7-11.0); Monocytes Absolute Auto 0.37 K/mm3 (0.10-0.90); Monocytes Percent Auto 2.6 % (2.0-11.0); Neutrophils Absolute Auto 11.6 K/mm3 (1.7-7.2); Neutrophils Percent Auto 82.2 % (50.0-70.0); Platelet Count Result 355 K/mm3 (150-420); Red Blood Count 4.63 M/mm3 (4.70-6.10); Red Cell Distribution Width 10.9 % (11.6-14.4); White Blood Count 14.1 K/mm3 (4.8-10.8)
[2021-03-16 01:03] LABS: Partial Thromboplastin Time 22.7 SEC (23.90-30.70); Prothrombin Time 10.5 Seconds (9.50-12.10)
[2021-03-16 01:07] LABS: Alanine Aminotransferase 51 U/L (16-63); Albumin Level 4.5 g/dL (3.4-5.0); Alkaline Phosphatase 154 U/L (46-116); Anion Gap 27 mmol/L (8-16); Aspartate Amino Transferase 21 U/L (15-37); Bilirubin,Total 0.8 mg/dL (0.00-1.00); Blood Urea Nitrogen 26 mg/dL (7-18); Calcium 10.4 mg/dL (8.5-10.1); Carbon Dioxide 16 mmol/L (21-32); Chloride 90 mmol/L (98-108); Estimated CRCL calculation 40 ml/min; Estimated Glomerular Filt Rate 47; Lipase 27 U/L (73-393); Potassium 4.3 mmol/L (3.5-5.1); Sodium 133 mmol/L (136-145); Total Protein 7.8 g/dL (6.4-8.2); Troponin I 5.8 ng/L (0.00-60.4)
[2021-03-16 01:18] LABS: Lactic Acid Reflex 3.6 mmol/L (0.4-2.0)
[2021-03-16 01:24] LABS: Glucose 515 mg/dL (70-99); Osmolality Calculated 303 mOsm/kg (285-295)
[2021-03-16] MEDS: PANTOPRAZOLE SODIUM IV 40 MG VIAL IV PUSH (01:30)
[2021-03-16] MEDS: ONDANSETRON INJ 4 MG/2 ML VIAL IV PUSH (01:30)
[2021-03-16] MEDS: SODIUM CHLORIDE 0.9% IV 1,000 ML 999 ML IV CONT ×4 (01:35→02:55)
--- NOTE | 2021-03-16 01:45 | PC.NURSE ---
Report to Mitzi Heck
[2021-03-16 02:13] LABS: Add Urine Microscopic? YES; Appearance Urine Clear (Clear); Bilirubin Urine Negative (Negative); Blood Urine Negative (Negative); Color Urine Yellow (Yellow); Glucose Urine UA 3+ (Negative); Ketones Urine 3+ (Negative); Leukocyte Esterase Ur Negative LEU/UL (Negative); Nitrate Urine Negative (Negative); Protein Urine Negative (Negative); Specific Grav Ur >= 1.030 (1.010-1.020); Urobilinogen Urine 0.2 mg/dL (0.2-1.0); pH Urine 5.5 (5.0-8.0)
[2021-03-16 02:26] LABS: Base Excess ABG -15.9 mmol/L (0-2); Oxygen Content ABG 17.4 %vol (16.0-22.0); Oxygen Saturation ABG 96.8 % (95-97); Oxyhemoglobin 95.9 % (94-100); PCO2 ABG 24.7 mmHg (35-45); PO2 ABG 101.9 mmHg (80-90); Total Hemoglobin 12.8 g/dL; pH ABG 7.22 (7.35-7.45)
[2021-03-16 02:28] LABS: RBC Urine None seen /hpf (0-2)
[2021-03-16 02:29] LABS: Bacteria Urine None seen /hpf; Squamous Epithelial Cell Urine Rare /hpf (Few); WBC Urine None seen /hpf (0-3)
[2021-03-16 02:29] LABS: Device ROOM AIR; Modified Allen's Test Pass; Site Drawn LEFT RADIAL
[2021-03-16 02:50] LABS: Glucose Point of Care > 450 mg/dl (65-105)
[2021-03-16] MEDS: INSULIN HUMAN REGULAR (*BKC) 100 UNITS/ML 6 UNITS IV PUSH (02:56)
--- NOTE | 2021-03-16 03:09 | PC.NURSE ---
pt resting per cot. call argueta in reach. water given to swish and spit.
--- NOTE | 2021-03-16 03:40 | ED.NAVMDI ---
HPI - Nausea/Vomiting/Diarrhea General Chief complaint: Nausea/Vomiting/Diarrhea Stated complaint: sickness Source: patient Mode of arrival: ambulatory Limitations: no limitations History of Present Illness HPI Narrative: This is a 56-year-old gentleman that presents via EMS a history of type 1 diabetes insulin, having abdominal pain with nausea and episodes of dry heaves for the last 5 days had a diminished appetite with no chest pain no shortness of breath no fever or chills. The patient has been having some abdominal fullness, currently on Reglan and apparently has some diabetic gastro paresis had some nuclear study did show gastric emptying no motility which according the patient was normal. Also has a history of hypertension and peripheral neuropathy. Currently there is no headaches no blurry vision no chest pain no flank pain no dysuria. MD elicited complaint: nausea, vomiting and abdominal pain Onset (ago): day(s) Description of vomiting: watery Associated nausea: Yes Associated abdominal pain: Yes Location of pain: diffuse Radiation: diffuse Pain consistency: intermittent Severity: moderate Quality: aching Exacerbating factors: eating Relieving factors: none Related Data Home Medications Medication Instructions Recorded Confirmed acetaminophen 650 mg PO Q4H PRN 05/30/20 03/16/21 lisinopril 10 mg PO HS 05/30/20 03/16/21 tramadol 50 mg tablet 50 mg PO Q6H PRN 01/20/21 03/16/21 Allergies Allergy/AdvReac Type Severity Reaction Status Date / Time No Known Allergies Allergy Verified 01/20/21 09:37 Review of Systems Review of Systems: All systems reviewed & are unremarkable except as noted in HPI and below PMFSH Past Medical History Medical History Diabetes mellitus type 1 Epigastric pain Erectile dysfunction Kidney stones Surgical History Surgical History History of appendectomy Family History Family History Mother Lymphoma Sibling Lymphoma Social History Social History Smoking packs per day: 1 Smoking cigarettes per day: 20.0 Years smoked: 34 Smoking pack-years: 34.00 Smoking status: Former smoker Tobacco type: cigarettes Second hand tobacco smoke exposure: Yes Smoking end date: 10/18/19 Alcohol intake: never Substance use: current Substance use type: marijuana Last use: 05/18/20 Additional occupation/education comments: 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 Gender identity (if verbalized by the patient): Male Spiritual care concerns: No Exam Const: General: no acute distress and alert Orientation/consciousness: patient oriented x3 HENMT: Head: normal to inspection Eyes: Cornea: corneas normal Pupils: Equal, round and reactive pupils present EOM: EOMs intact bilaterally Neck: Neck: normal visual inspection, no lymphadenopathy and no meningeal signs Chest: Chest palpation & inspection: normal inspection of the chest Resp: Effort & Inspection: normal respiratory effort Auscultation: clear to auscultation bilaterally Cardio: Rate: regular rate Rhythm: regular rhythm GI: GI Palp: Yes Soft to palpation and Yes Tenderness to palpation present (GI) Percussion: Yes normal to percussion Back/Spine/Pelvis: Back: no CVA tenderness Skin: General skin exam: normal color Rashes: no rashes Neuro: General: patient oriented x3, moves all extremities and no meningeal signs Extrem: General: normal to inspection and no pedal edema Psych: Mental Status: mental status grossly normal Affect: normal affect and Anxious affect present Attitude: cooperative Course Course Emergency Course: Initial presentation blood glucose levels greater than 500 patient received IV fluids and Zofran for nause
[2021-03-16 03:47] LABS: Reflex Lactic Acid Yes or No Add Lactic
[2021-03-16 04:04] LABS: Glucose Point of Care 403 mg/dl (65-105)
--- NOTE | 2021-03-16 04:05 | PC.NURSE ---
0326 accu check 403
--- NOTE | 2021-03-16 05:05 | ADMGEN ---
This patient, Khurram Trujillo, was admitted to 2nd Floor Room 226-2 for DKA. Patient/family oriented to hospital policies and general routines including ID bracelet, bed and alarms, visiting hours, pain management, procedures, bathroom and other care routines, personal items, smoking policy, room service/diet, and visiting hours. Information on how to activate the Rapid Response Team has been discussed. Patient/Family are encouraged to report perceived risks to care and to ask questions if they do not understand what they are told or what they should do.
[2021-03-16] MEDS: SODIUM CHLORIDE 0.9% IV 1,000 ML 100 ML IV CONT ×2 (05:15→20:16)
[2021-03-16 06:37] LABS: Glucose Point of Care 294 mg/dl (65-105)
[2021-03-16 06:37] LABS: Glucose Point of Care 281 mg/dl (65-105)
[2021-03-16 06:50] LABS: Basophils Absolute Auto 0.02 K/mm3 (0.00-0.10); Basophils Percent Auto 0.1 % (0.0-1.0); Hematocrit 32.2 % (40.0-54.0); Hemoglobin 11.1 g/dL (14.0-18.0); Immature Granulocyte Absolute 0.08 K/mm3 (0.00-0.00); Immature Granulocyte Percent A 0.5 % (0.0-0.0); Lymphocytes Absolute Auto 2.04 K/mm3 (1.10-4.50); Lymphocytes Percent Auto 12.3 % (18.0-42.0); Mean Corpuscular HGB Conc 34.5 g/dL (32.0-36.0); Mean Corpuscular Hemoglobin 30.2 pg (27.0-31.0); Mean Corpuscular Volume 87.7 fL (78.0-102.0); Mean Platelet Volume 10.4 fl (8.7-11.0); Monocytes Absolute Auto 0.65 K/mm3 (0.10-0.90); Monocytes Percent Auto 3.9 % (2.0-11.0); Neutrophils Absolute Auto 13.8 K/mm3 (1.7-7.2); Neutrophils Percent Auto 83.2 % (50.0-70.0); Platelet Count Result 275 K/mm3 (150-420); Red Blood Count 3.67 M/mm3 (4.70-6.10); Red Cell Distribution Width 11.1 % (11.6-14.4); White Blood Count 16.6 K/mm3 (4.8-10.8)
[2021-03-16 07:02] LABS: Alanine Aminotransferase 36 U/L (16-63); Albumin Level 3.4 g/dL (3.4-5.0); Alkaline Phosphatase 117 U/L (46-116); Anion Gap 25 mmol/L (8-16); Aspartate Amino Transferase 14 U/L (15-37); Bilirubin,Total 0.5 mg/dL (0.00-1.00); Blood Urea Nitrogen 18 mg/dL (7-18); Carbon Dioxide 10 mmol/L (21-32); Chloride 100 mmol/L (98-108); Estimated CRCL calculation 55 ml/min; Estimated Glomerular Filt Rate > 60; Glucose 283 mg/dL (70-99); Osmolality Calculated 291 mOsm/kg (285-295); Potassium 4.2 mmol/L (3.5-5.1); Sodium 135 mmol/L (136-145); Total Protein 6.2 g/dL (6.4-8.2)
[2021-03-16 07:08] LABS: Lactic Acid Reflex 1.1 mmol/L (0.4-2.0)
[2021-03-16 07:58] LABS: Glucose Point of Care 294 mg/dl (65-105)
[2021-03-16] MEDS: PREGABALIN (*CRX) 25 MG CAPSULE PO ×2 (08:24→17:04)
[2021-03-16] MEDS: DULoxetine HCL 30 MG CAPSULE.DR 60 MG PO (08:24)
[2021-03-16] MEDS: PREGABALIN (*CRX) 50 MG CAPSULE PO ×2 (08:24→17:04)
--- NOTE | 2021-03-16 09:29 | PC.NURSE ---
request for medical records faxed to [facility] for cont of care.
[2021-03-16 11:33] LABS: Glucose Point of Care 272 mg/dl (65-105)
--- NOTE | 2021-03-16 11:47 | PM.IMHP ---
H&P: HPI History of Present Illness Date/Time: 03/16/21 11:47 this is a 56-year-old gentleman that presented to ED via EMS with uncontrolled blood sugars. Patient has a past medical history of diabetes type 1, epigastric pain, erectile dysfunction, and kidney stones. Patient notes that he has had gastric problems since May 2020. Patient notes that his GI specialist is at [facility] scintigraphy completed which did not indicates that he had gastroparesis. Although the test was negative patient is displaying all the signs of gastroparesis and is being treated for by his primary care physician with [facility]. Patient notes he has been having abdominal pain describes it as someone with the point he believes it is kicking him in the stomach. He also has been feeling nauseated with occasional vomiting. Patient notes that he was afraid to be at home alone with his blood sugar being so unsteady and wanted to improve hyperglycemia. patient also notes that he has lost approximately 30 pounds since December. He also notes that his appetite has decreased and that his blood sugars has been brittle for the last couple days. This patient is known to our facility and he is very compliant and knowledgeable about his diagnosis. Patient's WBC 14.1, RBC 4.63, hemoglobin 14.1, hematocrit 40.0, platelets 355, ABG pH 7.22, PCO2 24.7, O2 101.9, bicarb 10.0, sodium 133, chloride 90, anion gap 27, BUN 26, creatinine 1.56, glucose 515, lactic acid 3.6, lipase 27, UA with glucose and ketones. Patient being admitted for DKA <MARYANNE Zafar - Last Filed: 03/16/21 16:16> Chief Complaint: Abdominal pain, elevated blood sugar <MARYANNE Zafar - Last Filed: 03/16/21 16:16> Review of Systems Review of Systems: Narrative: A 14 organ system Review of Systems was performed and pertinent positives included in the HPI, otherwise remaining ROS is negative. <MARYANNE Zafar - Last Filed: 03/16/21 16:16> [facility] Past Medical History Medical History: Medical History Diabetes mellitus type 1 Epigastric pain Erectile dysfunction Kidney stones <MARYANNE Zafar - Last Filed: 03/16/21 16:16> Surgical History Surgical History: Surgical History History of appendectomy <MARYANNE Zafar - Last Filed: 03/16/21 16:16> Family History Family History: Family History Mother Lymphoma Sibling Lymphoma <MARYANNE Zafar - Last Filed: 03/16/21 16:16> Social History Social History: Social History Smoking packs per day: 1 Smoking cigarettes per day: 20.0 Years smoked: 32 Smoking pack-years: 32.00 Smoking status: Former smoker Tobacco type: cigarettes Second hand tobacco smoke exposure: Yes Smoking end date: 10/18/19 Alcohol intake: former Substance use: current Substance use type: marijuana Last use: 05/18/20 Additional occupation/education comments: 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 Gender identity (if verbalized by the patient): Male Spiritual care concerns: No <MARYANNE Zafar - Last Filed: 03/16/21 16:16> Meds Home Medications and Allergies Home medications: Home Medications Medication Instructions Recorded Confirmed Type acetaminophen 650 mg PO Q4H PRN 05/30/20 03/16/21 History lisinopril 10 mg PO HS 05/30/20 03/16/21 History sennosides-docusate sodium 1 tab-cap PO HS #30 cap 06/05/20 03/16/21 Rx pen needle, diabetic 29 gauge x #100 each 07/09/20 03/16/21 Rx 1/2 tramadol 50 mg tablet 50 mg PO Q6H PRN 01/20/21 03/16/21 History duloxetine 60 mg capsule,delayed 60 mg PO DAILY #60 cap 01/21/21 03/16/21 Rx release insulin aspart U-100 100 unit/mL 7 unit SUBCUT TID #15 ml 01/21/21 03/16/21
[2021-03-16] MEDS: KCL 20 MEQ/D5/0.45% SOD CHL 1,000 ML 150 ML IV CONT (12:55)
[2021-03-16] MEDS: INSULIN HUMAN REGULAR (*BKC) 100 UNITS in SODIUM CHLORIDE 0.9% IV 99 ML IV CONT (12:56)
[2021-03-16 14:04] LABS: Glucose Point of Care 251 mg/dl (65-105)
--- NOTE | 2021-03-16 14:24 | PC.NURSE ---
marko is aware of bs 254 and wants the insulin gtt decreased to 0.1 units/hr.and she is making dr terrell aware now.
[2021-03-16 15:11] LABS: Glucose Point of Care 221 mg/dl (65-105)
--- NOTE | 2021-03-16 15:20 | PC.NURSE ---
marko aware of bs. wants no change in dose at this time.
[2021-03-16 15:57] LABS: Alanine Aminotransferase 35 U/L (16-63); Albumin Level 3.2 g/dL (3.4-5.0); Alkaline Phosphatase 110 U/L (46-116); Anion Gap 14 mmol/L (8-16); Aspartate Amino Transferase 20 U/L (15-37); Bilirubin,Total 0.5 mg/dL (0.00-1.00); Blood Urea Nitrogen 13 mg/dL (7-18); Calcium 8.3 mg/dL (8.5-10.1); Carbon Dioxide 18 mmol/L (21-32); Chloride 100 mmol/L (98-108); Estimated CRCL calculation 54 ml/min; Estimated Glomerular Filt Rate > 60; Glucose 202 mg/dL (70-99); Osmolality Calculated 280 mOsm/kg (285-295); Potassium 3.9 mmol/L (3.5-5.1); Sodium 132 mmol/L (136-145); Total Protein 5.8 g/dL (6.4-8.2)
[2021-03-16 16:03] LABS: Glucose Point of Care 215 mg/dl (65-105)
--- NOTE | 2021-03-16 16:05 | PC.NURSE ---
marko aware of accucheck and gtt cont with no changes. awaiting furthor orders from dr. mo.
[2021-03-16] MEDS: METOCLOPRAMIDE HCL 5 MG TABLET BY MOUTH (17:04)
[2021-03-16 17:35] LABS: Glucose Point of Care 256 mg/dl (65-105)
--- NOTE | 2021-03-16 17:38 | PC.NURSE ---
dr mo aware of accucheck and will cont and no change in gtt. evelyn garcia
[2021-03-16 18:09] LABS: Glucose Point of Care 289 mg/dl (65-105)
--- NOTE | 2021-03-16 18:11 | PC.NURSE ---
pt not wanting to eat. accucheck 289. awaiting call back from dr. mo.
--- NOTE | 2021-03-16 18:21 | PC.NURSE ---
talked with dr. mo. titrated insulin gtt to 6 units/hr as instructed by him. evelyn garcia
[2021-03-16 19:28] LABS: Alanine Aminotransferase 36 U/L (16-63); Albumin Level 3.1 g/dL (3.4-5.0); Alkaline Phosphatase 112 U/L (46-116); Anion Gap 17 mmol/L (8-16); Aspartate Amino Transferase 15 U/L (15-37); Bilirubin,Total 0.5 mg/dL (0.00-1.00); Blood Urea Nitrogen 12 mg/dL (7-18); Calcium 8.2 mg/dL (8.5-10.1); Carbon Dioxide 17 mmol/L (21-32); Chloride 99 mmol/L (98-108); Estimated CRCL calculation 51 ml/min; Estimated Glomerular Filt Rate 60; Glucose 316 mg/dL (70-99); Osmolality Calculated 287 mOsm/kg (285-295); Potassium 3.9 mmol/L (3.5-5.1); Sodium 133 mmol/L (136-145); Total Protein 5.8 g/dL (6.4-8.2)
[2021-03-16 19:32] LABS: Glucose Point of Care 312 mg/dl (65-105)
[2021-03-16] MEDS: lisinopriL 10 MG TABLET PO (20:17)
[2021-03-16] MEDS: SENNA/DOCUSATE SODIUM TABLET 1 TAB PO (20:17)
[2021-03-16 20:26] LABS: Glucose Point of Care 315 mg/dl (65-105)
--- NOTE | 2021-03-16 20:30 | PC.NURSE ---
physician notified of bs of 315, telephone order to restart iv insulin drip at rate of 1:1 at 6u/hr
[2021-03-16] MEDS: INSULIN HUMAN REGULAR (*BKC) 100 UNITS in SODIUM CHLORIDE 0.9% IV 99 ML 6 UNITS IV CONT (21:00)
[2021-03-16 21:11] LABS: Glucose Point of Care 243 mg/dl (65-105)
--- NOTE | 2021-03-16 21:15 | PC.NURSE ---
[facility] called to put in new order on DEC for insulin drip restart per dr terrell, spoke with ulysses at [facility], she will put order in, insulin drip restarted at 2100, new bag made 100ml of NS, removed 1mL NS from bag and added 100u of humulin R per pharmacist
[2021-03-16 22:05] LABS: Glucose Point of Care 153 mg/dl (65-105)
--- NOTE | 2021-03-16 22:22 | PC.NURSE ---
pt given turkey sandwich, ivs running, urinal and call light in reach
--- NOTE | 2021-03-16 22:33 | PC.NURSE ---
pt has eaten 2/3 of a turkey sandwich and a fruit cup, call light in reach
[2021-03-16 22:58] LABS: Glucose Point of Care 114 mg/dl (65-105)
[2021-03-17] VITALS: BP 112/70; PULSE 90; RESP 20; TEMP 37.7; O2SAT 97
--- NOTE | 2021-03-17 00:10 | PC.NURSE ---
Contacted Dr. Tucker regarding pt's blood sugar of 71; Orders received and noted.
--- NOTE | 2021-03-17 00:18 | PC.NURSE ---
Pt given ice cream as a snack.
[2021-03-17 00:32] LABS: Anion Gap 10 mmol/L (8-16); Blood Urea Nitrogen 9 mg/dL (7-18); Calcium 8.6 mg/dL (8.5-10.1); Carbon Dioxide 23 mmol/L (21-32); Chloride 106 mmol/L (98-108); Estimated CRCL calculation 53 ml/min; Estimated Glomerular Filt Rate > 60; Glucose 75 mg/dL (70-99); Osmolality Calculated 285 mOsm/kg (285-295); Potassium 3.7 mmol/L (3.5-5.1); Sodium 139 mmol/L (136-145)
[2021-03-17 00:36] LABS: Glucose Point of Care 71 mg/dl (65-105)
--- NOTE | 2021-03-17 00:47 | PC.NURSE ---
Pt voided 600 ml of clear, yellow urine in urinal.
[2021-03-17 01:03] LABS: Glucose Point of Care 210 mg/dl (65-105)
--- NOTE | 2021-03-17 01:06 | PC.NURSE ---
Dr. Tucker notified of pt's blood sugar of 210.
--- NOTE | 2021-03-17 01:21 | PC.NURSE ---
Dr. Tucker called with new orders; Orders received and noted.
[2021-03-17] MEDS: INSULIN GLARGINE (*BKC) 100 UNITS/ML 6 UNITS SUB-Q (01:28)
--- NOTE | 2021-03-17 01:42 | PC.NURSE ---
Pt given Lantus 6 units sub q as ordered to the right upper arm.
--- NOTE | 2021-03-17 02:28 | PC.NURSE ---
Pt asleep and no signs of discomfort noted.
[2021-03-17] MEDS: SODIUM CHLORIDE 0.9% IV 1,000 ML 100 ML IV CONT (03:05)
--- NOTE | 2021-03-17 03:05 | PC.NURSE ---
New bag of IV fluid infusing as ordered.
[2021-03-17 04:00] VITALS: BP 100/62; PULSE 78; RESP 20; TEMP 37.6; O2SAT 98
--- NOTE | 2021-03-17 05:10 | PC.NURSE ---
Pt asleep and no signs of discomfort noted. IV fluid continues to infuse as ordered.
[2021-03-17 05:26] LABS: Hematocrit 29.4 % (40.0-54.0); Hemoglobin 10.6 g/dL (14.0-18.0); Mean Corpuscular HGB Conc 36.1 g/dL (32.0-36.0); Mean Corpuscular Hemoglobin 31.2 pg (27.0-31.0); Mean Corpuscular Volume 86.5 fL (78.0-102.0); Mean Platelet Volume 10.5 fl (8.7-11.0); Platelet Count Result 224 K/mm3 (150-420)
[2021-03-17 05:39] LABS: Alanine Aminotransferase 37 U/L (16-63); Albumin Level 2.9 g/dL (3.4-5.0); Alkaline Phosphatase 99 U/L (46-116); Anion Gap 8 mmol/L (8-16); Aspartate Amino Transferase 35 U/L (15-37); Bilirubin,Total 0.4 mg/dL (0.00-1.00); Blood Urea Nitrogen 8 mg/dL (7-18); Calcium 8.1 mg/dL (8.5-10.1); Carbon Dioxide 25 mmol/L (21-32); Chloride 107 mmol/L (98-108); Estimated CRCL calculation 57 ml/min; Estimated Glomerular Filt Rate > 60; Glucose 143 mg/dL (70-99); Osmolality Calculated 290 mOsm/kg (285-295); Potassium 3.6 mmol/L (3.5-5.1); Sodium 140 mmol/L (136-145); Total Protein 5.2 g/dL (6.4-8.2)
--- NOTE | 2021-03-17 06:41 | PC.NURSE ---
Pt asleep and no signs of discomfort noted.
[2021-03-17 07:30] VITALS: BP 116/70; PULSE 77; RESP 18; TEMP 36.9; O2SAT 98
[2021-03-17 07:45] VITALS: PULSE 77
[2021-03-17 07:58] LABS: Glucose Point of Care 130 mg/dl (65-105)
--- NOTE | 2021-03-17 08:29 | PM.DS ---
DS: Admitting Diagnosis Admitting Diagnosis Admitting Diagnosis: DKA, hyperglycemia, abdominal pain DS: Discharge Diagnosis Discharge Diagnosis (1) Diabetic ketoacidosis: Qualifiers: Diabetes mellitus complication detail: without coma Diabetes mellitus type: type 1 Qualified Code(s): E10.10 - Type 1 diabetes mellitus with ketoacidosis without coma Code(s): E11.10 - Type 2 diabetes mellitus with ketoacidosis without coma Status: Acute Assessment and Plan: Resolved Moderate DKA As evidence of blood sugar 515>283, anion gap27>25, arterial pH 7.22, serum bicarb 10.0, urine ketone +, mental status alert Started insulin drip via order sets 4.2 unit/hr managed by pharm, with kcl 20 meq/D5/0.45 sodium at 150 ml/hr, decreeased insulin to 0.1u/hr Will continue to monitor and adjust medication according to blood sugar reading Blood sugars Routine repeat labs CO 2 16>10>18>17>23>25 (2) Hyperglycemia: Code(s): R73.9 - Hyperglycemia, unspecified Status: Acute Assessment and Plan: Refer to diabetic ketoacidosis (3) Epigastric pain: Code(s): R10.13 - Epigastric pain Status: Acute Assessment and Plan: Secondary gastroparesis Continue Reglan Patient will need to follow-up with his primary care physician (4) Hypertension: Qualifiers: Hypertension type: essential hypertension Qualified Code(s): I10 - Essential (primary) hypertension Code(s): I10 - Essential (primary) hypertension Status: Acute Assessment and Plan: Stable Continue lisinopril (5) Cervical myelopathy: Code(s): G95.9 - Disease of spinal cord, unspecified Status: Acute Assessment and Plan: Continue pain medication (6) Diabetes mellitus type 1: Qualifiers: Diabetes mellitus complication status: with other specified complication Qualified Code(s): E10.69 - Type 1 diabetes mellitus with other specified complication Code(s): E10.9 - Type 1 diabetes mellitus without complications Status: Acute Assessment and Plan: We will implement home medication once DKA has resolved Continue diabetic diet DS: Summary Hospital Course Hospital Course: this is a 56-year-old gentleman that presented to ED via EMS with uncontrolled blood sugars. Patient has a past medical history of diabetes type 1, epigastric pain, erectile dysfunction, and kidney stones. Patient notes that he has had gastric problems since May 2020. Patient notes that his GI specialist is at [facility] scintigraphy completed which did not indicates that he had gastroparesis. Although the test was negative patient is displaying all the signs of gastroparesis and is being treated for by his primary care physician with [facility]. Patient notes he has been having abdominal pain describes it as someone with the point he believes it is kicking him in the stomach. He also has been feeling nauseated with occasional vomiting. Patient notes that he was afraid to be at home alone with his blood sugar being so unsteady and wanted to improve hyperglycemia. patient also notes that he has lost approximately 30 pounds since December. He also notes that his appetite has decreased and that his blood sugars has been brittle for the last couple days. This patient is known to our facility and he is very compliant and knowledgeable about his diagnosis. Patient's WBC 14.1, RBC 4.63, hemoglobin 14.1, hematocrit 40.0, platelets 355, ABG pH 7.22, PCO2 24.7, O2 101.9, bicarb 10.0, sodium 133, chloride 90, anion gap 27, BUN 26, creatinine 1.56, glucose 515, lactic acid 3.6, lipase 27, UA with glucose and ketones. Patient being admitted for DKA Time Spent with Patient Time attestation: Total time spent providing and/or coordinating discharge services: 60 minutes Exam Narrative: Exam Narrative: GENERAL: This is a well-nourished, well-developed patient, in no apparent distress. HEAD: normocepha
[2021-03-17] MEDS: DULoxetine HCL 30 MG CAPSULE.DR 60 MG PO (09:41)
[2021-03-17] MEDS: PREGABALIN (*CRX) 50 MG CAPSULE PO (09:41)
[2021-03-17] MEDS: PREGABALIN (*CRX) 25 MG CAPSULE PO (09:41)
--- NOTE | 2021-03-17 10:55 | PC.NURSE ---
Patient aware he discharging home today. All discharged instructions and education reviewed with patient. Patient states understanding. IV sites removed, tip intact. Dressing applied to areas. Provided with all discharge paperwork, patient denies any questions. All belongings and home medication gathered together and sent home with patient. This nurse accompanied patient to front door, patient ambulated. Left with friend via private vehicle.
--- NOTE | 2021-03-18 12:39 | PC.NURSE ---
Discharge call back completed. Khurram states that the nurse did go over the discharge instructions and did understand them, states they the level of care he received was excellent.
== END 2021-03-17 11:00 | disposition home or self-care (01) | DRG 638 ==
LOC: CHSED 03:46 → CHS2ND 11:26
PROVIDERS: Nurse Practitioner; Admitting Provider Emergency Medicine; Emergency Provider Emergency Medicine; PCP Family Medicine; Visit Provider Emergency Medicine
DX: E10.65 Type 1 diabetes mellitus with hyperglycemia (principal); E10.42 Type 1 diabetes mellitus with diabetic polyneuropathy; I10 Essential (primary) hypertension; N20.0 Calculus of kidney; Z79.4 Long term (current) use of insulin; F17.210 Nicotine dependence, cigarettes, uncomplicated; Z87.442 Personal history of urinary calculi; Z90.49 Acquired absence of other specified parts of digestive tract; E10.10 Type 1 diabetes mellitus with ketoacidosis without coma; G95.9 Disease of spinal cord, unspecified; E10.43 Type 1 diabetes mellitus with diabetic autonomic (poly)neuropathy; K31.84 Gastroparesis
CPT/HCPCS: 36415; 36600; 71046; 74177; 80048; 80053; 81001; 82805; 82948; 83605; 83690; 84484; 85025; 85027; 85610; 85730; 87040; 93005; 96361; 96374; 96375; 99285; A9270; C9113; J1815; J2405; J3480; J7030; Q9967

== ENCOUNTER 2021-04-22 08:45 | Outpatient (CLI) | payer BC, SELFPAY ==
--- NOTE | ~2021-04-22 | US_ITS ---
EXAMINATION: US aorta DATE: 04/22/2021 09:03 INDICATION: Abdominal bruit. TECHNIQUE: Grayscale, color Doppler, and pulsed Doppler images of the aorta and common iliac arteries were obtained. COMPARISON: CT abdomen and pelvis 03/16/2021 FINDINGS: The aorta is normal in caliber. The right common iliac artery is normal in caliber. The left common i liac artery is normal in caliber. IMPRESSION: 1. No abdominal aortic aneurysm. Reviewed, dictated and finalized at location A.
== END 2021-04-22 08:46 | disposition home or self-care (01) ==
PROVIDERS: PCP Family Medicine; Visit Provider Family Medicine
DX: R19.8 Other specified symptoms and signs involving the digestive system and abdomen (principal); R10.13 Epigastric pain
CPT/HCPCS: 76775

== ENCOUNTER 2021-08-01 07:26 | Outpatient (CLI) | payer BC, SELFPAY ==
[2021-08-01 08:20] LABS: Estimated Glomerular Filt Rate > 60
== END 2021-08-01 07:27 | disposition home or self-care (01) ==
LOC: CHSIMG 08-03 07:26
PROVIDERS: PCP Family Medicine; Visit Provider Family Medicine
DX: Z53.8 Procedure and treatment not carried out for other reasons (principal)
CPT/HCPCS: 99199

== ENCOUNTER 2021-08-04 09:34 | Outpatient (CLI) | payer BC, SELFPAY ==
--- NOTE | ~2021-08-04 | MMUS_ITS ---
EXAMINATION: MM diagnostic peg RT w johnny, US breast RT complete HISTORY: Right breast lump TECHNIQUE: ML, MLO and craniocaudal 3-D tomosynthesis images of the right breast were performed and s ynthetic 2-D images were generated. CAD analysis was submitted and interpreted. High resolution compl ete 4 quadrants and subareolar right breast ultrasound was performed. COMPARISON: None BREAST PARENCHYMAL COMPOSITION: The breasts are extremely dense, which lowers the sensitivity of mamm ography. FINDINGS: MAMMOGRAPHIC FINDINGS: There is gynecomastia, measuring up to approximately 3 cm vertical dimension, 2.2 cm depth and 2.9 cm transverse dimension. No suspicious mass or architectural distortion, malignant calcification, skin thickening or retractio n is detected. ULTRASOUND: Fibroid regular stroma is identified in the right breast. No suspicious mass or suspicious shadowing is detected. IMPRESSION: 1. Right gynecomastia 2. No mammographic evidence of malignancy BI-RADS Category 2: Benign finding(s). Reviewed, dictated and finalized at location A. IMPRESSION: 1. Right gynecomastia 2. No mammographic evidence of malignancy BI-RADS Category 2: Benign finding(s).
== END 2021-08-04 09:35 | disposition home or self-care (01) ==
LOC: CHSIMG 09:36
PROVIDERS: PCP Family Medicine; Visit Provider Family Medicine
DX: N63.10 Unspecified lump in the right breast, unspecified quadrant (principal)
CPT/HCPCS: 76641; 77061; 77065; G0279

== ENCOUNTER 2022-04-09 01:25 | Emergency (ER) | payer BC, SELFPAY ==
[2022-04-09] VITALS (29 sets, daily range): BP systolic 116–177; BP diastolic 78–108; PULSE 90–103; RESP 18; TEMP 36.4; O2SAT 95–100
--- NOTE | ~2022-04-09 | XR_ITS ---
EXAMINATION: XR chest 1V portable DATE: 04/09/2022 02:10 INDICATION: Shortness of breath. TECHNIQUE: A single frontal view of the chest was obtained. COMPARISON: Chest 2 views 03/16/2021 FINDINGS: The chest demonstrates clear lungs without pneumonia, pleural effusion, or pneumothorax. Th e heart size is normal. There are changes of anterior fusion procedure in cervical spine. IMPRESSION: 1. No acute cardiopulmonary disease. Reviewed, dictated and finalized at location A.
--- NOTE | 2022-04-09 01:53 | ECG_ITS ---
Measurements Intervals [place] Rate: 101 P: 85 SD: 146 QRS: 93 QRSD: 89 T: 71 QT: 352 QTc: 458 Interpretive Statements SINUS TACHYCARDIA RIGHT ATRIAL ENLARGEMENT [0.3mV P-WAVE] LEFT ATRIAL ENLARGEMENT [-0.15mV P-WAVE IN V1/V2] BORDERLINE RIGHT AXIS DEVIATION [QRS AXIS > 90] NONSPECIFIC ST AND T ABNORMALITY COMPARED TO ECG 03/16/2021 02:10:35 NO SIGNIFICANT DIFFERENCE Electronically Signed On 04-09-2022 15:53:46 CDT by Wyatt Arrington M.D.
[2022-04-09] MEDS: SODIUM CHLORIDE 0.9% IV 1,000 ML 999 ML IV CONT ×3 (02:21→04:47)
[2022-04-09] MEDS: PANTOPRAZOLE SODIUM IV 40 MG VIAL 80 MG IV PUSH (02:21)
[2022-04-09 02:32] LABS: Base Excess ABG -13.9 mmol/L (0-2); Oxygen Content ABG 19.2 %vol (16.0-22.0); Oxygen Saturation ABG 96.9 % (95-97); Oxyhemoglobin 96.4 % (94-100); PCO2 ABG 28.9 mmHg (35-45); PO2 ABG 98.5 mmHg (80-90); Total Hemoglobin 14.1 g/dL (12.0-18.0); pH ABG 7.24 (7.35-7.45)
--- NOTE | 2022-04-09 02:32 | ED.NAVMDI ---
HPI - Nausea/Vomiting/Diarrhea General Chief complaint: Nausea/Vomiting/Diarrhea Stated complaint: Nausea/vomitting Source: patient and EMS Mode of arrival: EMS Limitations: no limitations History of Present Illness HPI Narrative: this is a 57-year-old gentleman that presents via EMS with some for the last 3 days having difficulty with some eating and with weakness, patient is a smoker and has a history of COPD and states that he has been short of breath but also has been having some nausea currently no nausea or vomiting, no abdominal pain no fever chills no chest pain. Per EMS patient had a blood glucose level of 394. Patient has been having no dysuria, with no flank pain no hematuria. Patient has a history of diabetes insulin dependent and has last A1c performed which was 10.8 with a history of DKA in the past. MD elicited complaint: nausea Pertinent past history: anorexia Onset (ago): day(s) Description of vomiting: watery Associated nausea: Yes Associated abdominal pain: No Location of pain: none Related Data Home Medications Medication Instructions Recorded Confirmed lisinopril 10 mg tablet 10 mg PO HS 05/30/20 04/09/22 Allergies Allergy/AdvReac Type Severity Reaction Status Date / Time Gbqwebi-ACA-EaS Reductase AdvReac Unknown Unknown Verified 04/09/22 01:43 Inhibitor [Boozsvc-Wey-Mjl Reductase Inhibitor] Review of Systems Review of Systems: All systems reviewed & are unremarkable except as noted in HPI and below PMFSH Past Medical History Medical History Diabetes mellitus type 1 Epigastric pain Erectile dysfunction Kidney stones Surgical History Surgical History History of appendectomy Family History Family History Mother Lymphoma Sibling Lymphoma Social History Social History Smoking packs per day: 1 Smoking cigarettes per day: 20.0 Years smoked: 32 Smoking pack-years: 32.00 Tobacco type: cigarettes Second hand tobacco smoke exposure: Yes Smoking end date: 10/18/19 Alcohol intake: former Substance use: current Substance use type: marijuana Last use: 05/18/20 Additional occupation/education comments: 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 Gender identity (if verbalized by the patient): Male Sexual Orientation (if Verbalized by the Patient): Straight or Heterosexual Spiritual care concerns: No Exam Const: General: healthy appearing and no acute distress Limitations: no limitations HENMT: Head: normal to inspection Face and sinus: normal facial exam Mouth: Yes Normal oral and palatal mucosa present Eyes: Conjunctivae: conjunctivae normal Pupils: Equal, round and reactive pupils present EOM: EOMs intact bilaterally Neck: Neck: normal visual inspection, no lymphadenopathy and no meningeal signs Chest: Chest palpation & inspection: normal inspection of the chest Resp: Effort & Inspection: normal respiratory effort Auscultation: clear to auscultation bilaterally Cardio: Rate: regular rate and tachycardic Rhythm: regular rhythm GI: GI Palp: Yes Soft to palpation Auscultation: normal bowel sounds : General: Yes bladder normal to palpation Back/Spine/Pelvis: Back: no CVA tenderness Skin: General skin exam: normal color Rashes: no rashes Wounds: no wounds Neuro: General: patient oriented x3, moves all extremities, no meningeal signs and no focal motor deficits Cranial nerves: Yes Nystagmus not present Speech: normal speech Extrem: General: normal to inspection Psych: Mental Status: mental status grossly normal Affect: normal affect Course Course Emergency Course: Patient received IV fluids normal saline, had a chest x-ray performed which was reviewed with trent
[2022-04-09 02:35] LABS: Basophils Absolute Auto 0.05 K/mm3 (0.00-0.10); Basophils Percent Auto 0.4 % (0.0-1.0); Eosinophils Absolute Auto 0.01 K/mm3 (0.02-0.50); Eosinophils Percent Auto 0.1 % (1.0-6.0); Hematocrit 42.8 % (40.0-54.0); Hemoglobin 14.9 g/dL (14.0-18.0); Immature Granulocyte Absolute 0.08 K/mm3 (0.00-0.00); Immature Granulocyte Percent A 0.6 % (0.0-0.0); Lymphocytes Absolute Auto 1.38 K/mm3 (1.10-4.50); Lymphocytes Percent Auto 10.5 % (18.0-42.0); Mean Corpuscular HGB Conc 34.8 g/dL (32.0-36.0); Mean Corpuscular Hemoglobin 31.4 pg (27.0-31.0); Mean Corpuscular Volume 90.3 fL (78.0-102.0); Mean Platelet Volume 10.1 fl (8.7-11.0); Monocytes Absolute Auto 0.31 K/mm3 (0.10-0.90); Monocytes Percent Auto 2.4 % (2.0-11.0); Neutrophils Absolute Auto 11.3 K/mm3 (1.7-7.2); Platelet Count Result 396 K/mm3 (150-420); Red Blood Count 4.74 M/mm3 (4.70-6.10); Red Cell Distribution Width 11.4 % (11.6-14.4); White Blood Count 13.1 K/mm3 (4.8-10.8)
[2022-04-09 02:39] LABS: Device NASAL CANNULA; Modified Allen's Test Pass; Site Drawn RIGHT RADIAL
[2022-04-09 02:51] LABS: Alanine Aminotransferase 55 U/L (16-63); Albumin Level 4.4 g/dL (3.4-5.0); Alkaline Phosphatase 177 U/L (46-116); Anion Gap 28 mmol/L (8-16); Aspartate Amino Transferase 28 U/L (15-37); Bilirubin,Total 0.8 mg/dL (0.00-1.00); Blood Urea Nitrogen 31 mg/dL (7-18); Calcium 9.4 mg/dL (8.5-10.1); Carbon Dioxide 15 mmol/L (21-32); Chloride 88 mmol/L (98-108); Estimated Glomerular Filt Rate 41; Magnesium 2.2 mg/dL (1.8-2.4); Phosphorus 4.8 mg/dL (2.6-4.7); Potassium 4.8 mmol/L (3.5-5.1); Sodium 131 mmol/L (136-145); Total Protein 7.8 g/dL (6.4-8.2)
[2022-04-09 02:53] LABS: Glucose > 500 mg/dL (70-99); Osmolality Calculated 301 mOsm/kg (285-295)
[2022-04-09 02:54] LABS: CRP < 0.2 mg/dL (0.0-0.9)
[2022-04-09 02:57] LABS: Lactic Acid Reflex 3.9 mmol/L (0.4-2.0)
--- NOTE | 2022-04-09 03:04 | PC.NURSE ---
Call page placed to [facility] for [place] [facility]. Awaiting call back from [place]. unable to contact at this time.
[2022-04-09] MEDS: INSULIN REG 100 UNITS/100 ML 100 UNITS/100 ML BAG 8.8 UNITS IV CONT (03:06)
[2022-04-09 03:11] LABS: SARS-CoV-2 RNA PCR Negative (Negative)
[2022-04-09] MEDS: KCL 20 MEQ/SW 100 ML 100 ML 50 MEQ IVPB (03:12)
--- NOTE | 2022-04-09 03:39 | PC.NURSE ---
sara called for bed
[2022-04-09 03:49] LABS: Glucose Point of Care > 450 mg/dl (65-105)
[2022-04-09 04:19] LABS: Add Urine Microscopic? YES; Appearance Urine Clear (Clear); Bilirubin Urine Negative (Negative); Blood Urine Negative (Negative); Color Urine Light Yellow (Yellow); Glucose Urine UA 3+ (Negative); Ketones Urine 3+ (Negative); Leukocyte Esterase Ur Negative (Negative); Nitrate Urine Negative (Negative); Protein Urine Negative (Negative); Specific Grav Ur >= 1.030 (1.010-1.020); Urobilinogen Urine 0.2 mg/dL (0.2-1.0); pH Urine 5.5 (5.0-8.0)
[2022-04-09 04:24] LABS: Bacteria Urine None seen /hpf; RBC Urine 0-2 /hpf (0-2); Squamous Epithelial Cell Urine None seen /hpf (Few); WBC Urine 0-3 /hpf (0-3)
--- NOTE | 2022-04-09 04:47 | PC.NURSE ---
[facility]
[2022-04-09 05:08] LABS: Glucose Point of Care 322 mg/dl (65-105)
[2022-04-09 05:37] LABS: Reflex Lactic Acid Yes or No Add Lactic
[2022-04-09 06:10] LABS: Lactic Acid 1.8 mmol/L (0.4-2.0)
[2022-04-09 06:17] LABS: Alanine Aminotransferase 46 U/L (16-63); Albumin Level 3.4 g/dL (3.4-5.0); Alkaline Phosphatase 142 U/L (46-116); Anion Gap 18 mmol/L (8-16); Aspartate Amino Transferase 22 U/L (15-37); Bilirubin,Total 0.6 mg/dL (0.00-1.00); Blood Urea Nitrogen 28 mg/dL (7-18); Calcium 8.1 mg/dL (8.5-10.1); Carbon Dioxide 17 mmol/L (21-32); Chloride 102 mmol/L (98-108); Estimated Glomerular Filt Rate 48; Glucose 277 mg/dL (70-99); Osmolality Calculated 299 mOsm/kg (285-295); Potassium 3.9 mmol/L (3.5-5.1); Sodium 137 mmol/L (136-145); Total Protein 6.3 g/dL (6.4-8.2)
== END 2022-04-09 06:20 | disposition short-term general hospital (02) ==
PROVIDERS: Emergency Provider Emergency Medicine; PCP Family Medicine
DX: E10.10 Type 1 diabetes mellitus with ketoacidosis without coma (principal); Z20.822 Contact with and (suspected) exposure to COVID-19; F17.200 Nicotine dependence, unspecified, uncomplicated
CPT/HCPCS: 36415; 36600; 71045; 80053; 81001; 82805; 82948; 83605; 83735; 84100; 85025; 86140; 87040; 93005; 96361; 96365; 96366; 96368; 96375; 99285; C9113; C9803; J1815; J3480; J7030; U0003; U0005

== ENCOUNTER 2022-04-09 06:38 | Inpatient (IN) | payer BC, SELFPAY ==
--- NOTE | 2022-04-09 07:32 | PC.NURSE ---
This patient, Khurram Trujillo, was admitted to Intensive Care Unit-9. Patient/family oriented to hospital policies and general routines including ID bracelet, bed and alarms, visiting hours, pain management, procedures, bathroom and other care routines, personal items, smoking policy, room service/diet, and visiting hours. Information on how to activate the Rapid Response Team has been discussed. Patient/Family are encouraged to report perceived risks to care and to ask questions if they do not understand what they are told or what they should do.
[2022-04-09 08:00] VITALS: BP 141/76; PULSE 91; RESP 13; TEMP 36.7; O2SAT 100
[2022-04-09] MEDS: KCL 20 MEQ/D5/0.45% SOD CHL 1,000 ML 150 ML IV CONT (08:32)
[2022-04-09] MEDS: INSULIN HUMAN REGULAR (*BKC) 100 UNITS in SODIUM CHLORIDE 0.9% IV 99 ML IV CONT (08:33)
[2022-04-09 08:40] LABS: Anion Gap 13 mmol/L (8-16); Blood Urea Nitrogen 25 mg/dL (9-20); Calcium 8.3 mg/dL (8.4-10.2); Carbon Dioxide 14 mmol/L (22-30); Chloride 107 mmol/L (98-107); Estimated Glomerular Filt Rate > 60; Glucose 206 mg/dL (65-110); Magnesium 1.9 mg/dL (1.6-2.3); Phosphorus 2.6 mg/dL (2.5-4.5); Potassium 4.4 mmol/L (3.4-5.0); Sodium 134 mmol/L (137-145)
[2022-04-09 08:42] LABS: Glucose Point of Care 231 mg/dl (65-105)
[2022-04-09 08:42] LABS: Glucose Point of Care 217 mg/dl (65-105)
[2022-04-09] MEDS: ENOXAPARIN 40 MG/0.4 ML SYRINGE SUB-Q (09:26)
[2022-04-09 10:00] VITALS: BP 154/89; PULSE 87; RESP 12; O2SAT 100
[2022-04-09 10:31] LABS: Glucose Point of Care 209 mg/dl (65-105)
--- NOTE | 2022-04-09 11:14 | WPDCNINT ---
Assessment and Plan Assessment and plan (1) DKA (diabetic ketoacidosis): Qualifiers: Diabetes mellitus complication detail: without coma Diabetes mellitus type: type 1 Qualified Code(s): E10.10 - Type 1 diabetes mellitus with ketoacidosis without coma Code(s): E11.10 - Type 2 diabetes mellitus with ketoacidosis without coma Status: Acute Assessment and Plan: Patient received IVF bolus and I will start IV fluid infusion I will also order Insulin infusion and Q1H glucose monitoring Serial labs are ordered Replace electrolytes as needed Will transition to SC insulin once AG is closed (2) Elevated blood pressure reading: Code(s): R03.0 - Elevated blood-pressure reading, without diagnosis of hypertension Status: Acute Assessment and Plan: Monitor P.r.n. labetalol ordered (3) Gastroparesis: Code(s): K31.84 - Gastroparesis Status: Acute Assessment and Plan: Reglan ordered (4) Nausea & vomiting: Code(s): R11.2 - Nausea with vomiting, unspecified Status: Acute Assessment and Plan: P.r.n. Zofran (5) Acute kidney injury: Code(s): N17.9 - Acute kidney failure, unspecified Status: Acute Assessment and Plan: Elevated creatinine secondary to dehydration hypovolemia Improved with IV fluids and creatinine has normalized this afternoon Continue to monitor urine urine out, electrolytes and creatinine Lisinopril held at this time (6) Leukocytosis: Code(s): D72.829 - Elevated white blood cell count, unspecified Status: Acute Assessment and Plan: Likely secondary to SIRS UA and chest x-ray negative No symptoms suggestive of infection Additional Plan DVT prophylaxis -Lovenox Nutrition -clear liquid diet as tolerated Code Status - Full Code Hospital Nursing Assistant Consult Note Consult date: 04/09/22 Reason for consult: DKA HPI: Khurram Trujillo is a 57 year old male with past medical history of diabetes COPD, right hemiparesis from a complicated cervical spine surgery 2 years ago was transferred from [facility] with DKA. Patient presented there with chief complaint of nausea vomiting. Patient states that he was feeling sick for last few days but was unable to describe any specific symptoms and told me that he was fatigued and tired. And yesterday he started having nausea and vomiting. No blood in the vomitus. He denies any chest pain abdominal pain fever shortness of breath. He went to ED and was found to be in DKA. Patient was given IV fluids and started on IV insulin. He was transferred to [facility] ICU for further evaluation management. During transport he was not on any IV infusions. This morning he states he feels much better and denies any symptoms at this time. He claims that he was taking his insulin regularly but he was not checking his blood sugars. Patient denies fever, chest pain, shortness of breath, cough, nausea vomiting, abdominal pain,, diarrhea, headache or constipation at this time. The system was positive for residual weakness on right side since his past surgery 2 years ago. All other systems were reviewed and were negative. He states that he feels frustrated because of his multiple episodes of DKA and physicians unable to figure out the impact of his cervical surgery that has led to multiple DKA since then. States he feels full all the time and also has early satiety when eating He was on Seroquel but discontinued because he was having hallucinations with it. He denies any suicidal homicidal ideation and does feel depressed He smokes up to a pack a day, denies alcohol use, smokes marijuana. Denies any other drug use Review of Systems Review of Systems: All systems reviewed & are unremarkable except as noted in HPI and below (HPI) [facility] Past Medical History Medical History Diabetes mellitus type 1 Epigastric pain Erectile dysfunc
[2022-04-09 12:00] VITALS: BP 135/76; PULSE 90; RESP 12; RESP 17; TEMP 36.6; O2SAT 100
[2022-04-09 12:37] LABS: Anion Gap 7 mmol/L (8-16); Blood Urea Nitrogen 23 mg/dL (9-20); Calcium 8.1 mg/dL (8.4-10.2); Carbon Dioxide 20 mmol/L (22-30); Chloride 107 mmol/L (98-107); Estimated Glomerular Filt Rate > 60; Glucose 170 mg/dL (65-110); Sodium 134 mmol/L (137-145)
[2022-04-09 12:49] LABS: Glucose Point of Care 201 mg/dl (65-105)
[2022-04-09 12:50] LABS: Glucose Point of Care 170 mg/dl (65-105)
[2022-04-09 13:57] VITALS: BMI 19.3
[2022-04-09 14:00] VITALS: PULSE 88; BMI 19.3
[2022-04-09] MEDS: INSULIN GLARGINE (*BKC) 100 UNITS/ML 20 UNITS SUB-Q (14:14)
[2022-04-09 14:53] LABS: Glucose Point of Care 176 mg/dl (65-105)
--- NOTE | 2022-04-09 15:04 | PM.IMHP ---
H&P: HPI History of Present Illness Date/Time: This patient wa seen and examined this morning 04/09/22 at 0830 Chief Complaint: vomiting Narrative: 59M with a past medical history of type 1, erectile dysfunction and nephrolithiasis who presented to he ED due to vomiting. Patient says around midnight he suddenly vomited. He says he has not been feeling well for the past 2-3 days with poor oral intake. Patient says he had no nausea prior to vomiting. Emesis was clear with no blood. Patient denies any recent illness but says all of his friends currently have COVID19. He had the [employer] COVID19 vaccine but doesn't remember what month and has not had any additional COVID19 vaccines. Patient denies fever, chills, cough but says he has had increased shortness of breath over he past few days. Denies rhinorrhea, sore throat, ear pain, headache, ageusia, anosmia, abdominal pain, constipation, diarrhea, melena hematochezia, dysuria, stranguria. Of note, patient diagnosed with DM1 at 24 and his sister, who is 7 years older was also diagnosed with DM1 at age 24. Says he has had DKA about four times - twice early about 20 years ago and then twice in the last two years after his neck surgery. In the ED, POC glucose > 450 with AG 28, Creatinine 1.51, leukocytosis 13.1, BCX sent, CXR unremarkable. Review of Systems Constitutional: Constitutional: Denies chills, Reports fatigue and Reports lethargy ENT: Denies nasal congestion and Denies nasal discharge Cardiovascular: Cardiovascular: Denies chest pain Respiratory: Respiratory: Denies chest congestion, Denies cough, Denies hemoptysis and Reports dyspnea Gastrointestinal: Gastrointestinal: Denies abdominal pain, Denies constipation, Denies diarrhea, Denies nausea, Reports vomiting and Denies hematemesis Genitourinary: Genitourinary: Denies dysuria and Denies urinary hesitancy Musculoskeletal: Musculoskeletal: Denies myalgias Integumentary/Breasts: Skin/Breast: Denies rash Neurologic: Denies headache(s) Psychiatric: Psychiatric: Denies confusion PMF Past Medical History Medical History (Updated 04/09/22 @ 15:45 by Heaven Naranjo MD) Diabetes mellitus type 1 Epigastric pain Erectile dysfunction Kidney stones Surgical History Surgical History (Updated 04/09/22 @ 15:35 by Heaven Naranjo MD) History of appendectomy Previous back surgery 2020 Family History Family History Mother Lymphoma Sibling Lymphoma Diabetes mellitus Social History Social History Smoking packs per day: 0.5 Smoking cigarettes per day: 10.0 Years smoked: 25 Smoking pack-years: 12.50 Smoking status: Current every day smoker Tobacco type: cigarettes Second hand tobacco smoke exposure: Yes Smoking end date: 10/18/19 Alcohol intake: never Substance use: current Substance use type: marijuana Last use: 05/18/20 Additional occupation/education comments: 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 Gender identity (if verbalized by the patient): Male Sexual Orientation (if Verbalized by the Patient): Straight or Heterosexual Spiritual care concerns: No Past History Past surgical history: Hx of back surgery 2 years ago - Cervical spine fusion Meds Home Medications and Allergies Home Medications Medication Instructions Recorded Confirmed Type lisinopril 10 mg tablet 10 mg PO HS 05/30/20 04/09/22 History pen needle, diabetic 29 gauge x #100 ea 07/09/20 04/09/22 Rx 1/2 (Pen Needle) insulin glargine-yfgn 100 unit/mL 15 unit (0.15 mL) subcut QPM #10 mL 02/02/22 04/09/22 Rx subcutaneous solution (Semglee (insulin glargine-yfgn)) tadalafil 10 mg tablet (Cialis) 10 mg PO DAILY PRN sexual activity 02/09/22 04/09/22 Rx #30 tabs insulin aspart U-100 100 unit/mL 7 unit subcut TID 04/09/22 04/09/22
--- NOTE | 2022-04-09 16:00 | PC.NURSE ---
This patient, Khurram Trujillo, was transferred to [facility] on 04/09/22 at 1600. Personal belongings sent with patient. Report given to Naty. Appropriate documentation sent with patient.
[2022-04-09] MEDS: LACTATED RINGERS 1,000 ML 75 ML IV CONT (16:10)
--- NOTE | 2022-04-09 16:27 | PC.NURSE ---
This patient, Khurram Trujillo, was received from [facility] on 04/09/22 at 1605 . Patient/family oriented to unit policies and routines
[2022-04-09 16:31] LABS: Glucose Point of Care 107 mg/dl (65-105)
[2022-04-09] MEDS: ACETAMINOPHEN/ASPIRIN/CAFFEINE 250-250-65 MG TABLET 2 TABLET PO (16:31)
[2022-04-09] MEDS: INSULIN ASPART (*BKC) 100 UNITS/ML 7 UNITS SUB-Q (16:33)
[2022-04-09 17:30] LABS: Glucose Point of Care 169 mg/dl (65-105)
[2022-04-09 18:20] VITALS: BP 125/69; PULSE 84; RESP 18; TEMP 37.1; O2SAT 100
[2022-04-09] MEDS: INSULIN ASPART (*BKC) 100 UNITS/ML SUB-Q (20:15)
[2022-04-09 21:45] LABS: Glucose Point of Care 275 mg/dl (65-105)
[2022-04-09 22:00] VITALS: BP 112/59; PULSE 80; RESP 21; TEMP 36.3; O2SAT 100
[2022-04-10 02:00] VITALS: BP 111/63; PULSE 81; RESP 21; TEMP 36.7; O2SAT 100
[2022-04-10 05:51] LABS: Alanine Aminotransferase 27 U/L (6-50); Albumin Level 3.2 g/dL (3.5-5.1); Alkaline Phosphatase 102 U/L (38-126); Anion Gap 1 mmol/L (8-16); Aspartate Amino Transferase 27 U/L (17-59); Bilirubin,Total 0.5 mg/dL (0.2-1.3); Blood Urea Nitrogen 17 mg/dL (9-20); Calcium 8.1 mg/dL (8.4-10.2); Carbon Dioxide 26 mmol/L (22-30); Chloride 106 mmol/L (98-107); Estimated CRCL calculation 79 ml/min; Estimated Glomerular Filt Rate > 60; Glucose 180 mg/dL (65-110); Magnesium 1.7 mg/dL (1.6-2.3); Phosphorus 2.4 mg/dL (2.5-4.5); Potassium 3.6 mmol/L (3.4-5.0); Sodium 133 mmol/L (137-145)
[2022-04-10 05:58] LABS: Hematocrit 31.7 % (42.0-52.0); Hemoglobin 11.4 g/dL (14.0-18.0); Mean Corpuscular Hemoglobin 31.8 pg (26-34); Mean Corpuscular Volume 88.3 fl (80-100); Mean Platelet Volume 9.9 fl (7.4-10.4); Platelet Count Result 258 k/mm3 (150-375); Red Blood Count 3.59 M/mm3 (4.6-6.20); Red Cell Distribution Width 11.6 % (11.5-14.5); White Blood Count 7.9 K/mm3 (4.5-10.0)
[2022-04-10 06:00] VITALS: BP 135/73; PULSE 92; RESP 21; TEMP 36.4; O2SAT 100
[2022-04-10 07:51] LABS: Glucose Point of Care 174 mg/dl (65-105)
[2022-04-10] MEDS: INSULIN ASPART (*BKC) 100 UNITS/ML 7 UNITS SUB-Q ×2 (08:30→12:59)
[2022-04-10] MEDS: POTASSIUM PHOS,M-BASIC-D-BASIC 15 MMOL in SODIUM CHLORIDE 0.9% IV 250 ML 63.75 MMOL IVPB (09:08)
[2022-04-10] MEDS: lisinopriL 10 MG TABLET PO (09:20)
[2022-04-10] MEDS: ENOXAPARIN 40 MG/0.4 ML SYRINGE SUB-Q (09:20)
[2022-04-10 10:53] VITALS: BP 108/60; PULSE 84; RESP 18; TEMP 37.1; O2SAT 100
[2022-04-10 12:02] LABS: Glucose Point of Care 156 mg/dl (65-105)
--- NOTE | 2022-04-10 12:18 | PM.DS ---
DS: Admitting Diagnosis Discharge Date 04/10/22 Admitting Diagnosis Diabetic Ketoacidosis DS: Discharge Diagnosis Discharge Diagnosis (1) Vomiting: Code(s): R11.10 - Vomiting, unspecified Status: Acute Assessment and Plan: Remote hx of gastroparesis and was prescribed metoclopramide.? Given AG 28 and BG > 450 most likely cause is DKA.? No sign of acute illness and no nausea prior to emesis episode.? A1C 12. Metoclopramide restarted in ICU. Lantus increased to 20 units with improved glucose control. Patient to be discharged. -Continue metoclopramide -Lantus 22 units qhs and continue aspart 7 units TIDWM (2) DKA (diabetic ketoacidosis): Qualifiers: Diabetes mellitus complication detail: without coma Diabetes mellitus type: type 1 Qualified Code(s): E10.10 - Type 1 diabetes mellitus with ketoacidosis without coma Code(s): E11.10 - Type 2 diabetes mellitus with ketoacidosis without coma Status: Inactive Assessment and Plan: Gap closed yesterday. Resolved. (3) Leukocytosis: Code(s): D72.829 - Elevated white blood cell count, unspecified Status: Acute Assessment and Plan: Normal today. Resolved. (4) Acute kidney injury: Code(s): N17.9 - Acute kidney failure, unspecified Status: Acute Assessment and Plan: Likely 2/2 to intravascular depletion with DKA. Creatinine back to baseline. Resolved. (5) Metabolic acidosis: Code(s): E87.2 - Acidosis Status: Acute Assessment and Plan: Resolved with treatment of DKA. (6) Pseudohyponatremia: Code(s): R79.89 - Other specified abnormal findings of blood chemistry Status: Acute Assessment and Plan: Still present with hyperglycemia but improved. (7) Cervical myelopathy: Code(s): G95.9 - Disease of spinal cord, unspecified Status: Acute (8) Diabetes mellitus type 1: Qualifiers: Diabetes mellitus complication status: with other specified complication Qualified Code(s): E10.69 - Type 1 diabetes mellitus with other specified complication Code(s): E10.9 - Type 1 diabetes mellitus without complications Status: Acute Assessment and Plan: Lantus increased 15-20 units qhs. Will increase to 22 units qhs for discharge and continue with aspart 7 units TIDWM. This was discussed with the patient and advised patient to follow up with primary care physician within a week from discharge to additional insulin adjustments. Patient verbalized understanding of the plan. (9) Erectile dysfunction: Code(s): N52.9 - Male erectile dysfunction, unspecified Status: Acute Assessment and Plan: Phosphodiesterase inhibitor held during hospitalization. DS: Summary Hospital Course Reason for hospitalization: DKA Hospital Course: 57M with a past medical history of gastroparesis, DM1, erectile dysfunction and nephrolithiasis who presented to the ED with nausea and vomiting found to be in diabetic ketoacidosis with an anion gap of 28. Patient was admitted to the ICU for an insulin drip. a1c found to be 12. There was a leukocytosis and blood cultures were sent. Antibiotics were deferred as the patient was afebrile with signs of infection. Anion gap closed in the IUC and patient was moved to the floor later in the day. The next morning patient had significantly improved blood glucose control after the glargine had been increased from 15 to 20 units while in the ICU. Patient discharged t home with glargine 22 units qhs and aspart 7 units with meals. Patient was advised to follow up with his primary care physician within a week of discharge. Time Spent with Patient Time attestation: Total time spent providing and/or coordinating discharge services: Exam Narrative: GENERAL: NAD, laying in bed HEENT: Normocephalic, atraumatic, anicteric, nares clear, oropharynx moist and clear, dentition normal NECK: No thy
== END 2022-04-10 14:10 | disposition home or self-care (01) | DRG 638 ==
LOC: ANHICU 14:07 → ANH2MED 04-10 12:42 → ANHICU 04-12 11:46
PROVIDERS: Internal Medicine; Admitting Provider Family Medicine; PCP Family Medicine; Visit Provider Family Medicine
DX: E10.10 Type 1 diabetes mellitus with ketoacidosis without coma (principal); N17.9 Acute kidney failure, unspecified; G95.9 Disease of spinal cord, unspecified; E10.43 Type 1 diabetes mellitus with diabetic autonomic (poly)neuropathy; K31.84 Gastroparesis; R03.0 Elevated blood-pressure reading, without diagnosis of hypertension; D72.829 Elevated white blood cell count, unspecified; J44.9 Chronic obstructive pulmonary disease, unspecified; F17.210 Nicotine dependence, cigarettes, uncomplicated; N52.9 Male erectile dysfunction, unspecified; R79.89 Other specified abnormal findings of blood chemistry; Z66 Do not resuscitate; Z87.442 Personal history of urinary calculi; Z79.4 Long term (current) use of insulin; Z79.899 Other long term (current) drug therapy
CPT/HCPCS: 36415; 80048; 80053; 82948; 83036; 83735; 84100; 85027; A9270; J1650; J1815; J3480; J7050; J7120